=== PATIENT | male | born 1945 | race Caucasian/White ===

== ENCOUNTER → 2016-07-25 | Outpatient (REF) | payer MEDICARE ==
[2016-07-25 12:27] LABS: ALBUMIN 3.4 GM/DL (3.2-5.2); ALBUMIN/GLOBULIN RATIO 1.17 (1.00-1.93); ALKALINE PHOSPHATASE 139 U/L (45-117); ALT/SGPT 16 U/L (12-78); ANION GAP 5 MEQ/L (8-16); AST/SGOT 17 U/L (15-37); BILIRUBIN,TOTAL 0.6 MG/DL (0.2-1.0); BLOOD UREA NITROGEN 15 MG/DL (7-18); CALCIUM LEVEL 8.7 MG/DL (8.8-10.2); CARBON DIOXIDE LEVEL 30 MEQ/L (21-32); CHLORIDE LEVEL 104 MEQ/L (98-107); CHOLESTEROL LEVEL 85 MG/DL (<200); CREATININE FOR GFR 1.24 MG/DL (0.70-1.30); GLOMERULAR FILTRATION RATE > 60.0 (>42); GLUCOSE, FASTING 91 MG/DL (83-110); SODIUM LEVEL 139 MEQ/L (136-145); TOTAL PROTEIN 6.3 GM/DL (6.4-8.2); TRIGLYCERIDES LEVEL 63 MG/DL (<150)
[2016-07-25 12:54] LABS: MEAN CORPUSCULAR HEMOGLOBIN 31.6 pg (27.0-33.0); MEAN CORPUSCULAR HGB CONC 33.8 g/dl (32.0-36.5); MEAN CORPUSCULAR VOLUME 93.6 fl (80.0-96.0); RED CELL DISTRIBUTION WIDTH 12.5 % (11.5-14.5); WHITE BLOOD COUNT 8.8 K/mm3 (4.0-10.0)
== END ==
LOC: M SFHCPLAZ 09:11
PROVIDERS: ATTEND Nurse Practitioner Adult Health
DX: I69.30 Unspecified sequelae of cerebral infarction (principal); N18.3 Chronic kidney disease, stage 3 (moderate)

== ENCOUNTER → 2017-03-27 | Outpatient (CLI) | payer MEDICARE ==
--- NOTE | 2017-03-27 10:59 | REP ---
Clinical: Lung screening. History smoking. Comparison: None Technique: Axial low-dose noncontrast images from the thoracic inlet to the upper abdomen using lung screening technique. Findings: The lung garcia are well-aerated. A 7 mm nonsolid opacity in the right upper lobe and 2 mm nonsolid opacity in the left upper lobe are otherwise nonspecific. No consolidation or mass lesion is appreciated. No pleural effusion/reaction or pneumothorax. Tracheobronchial tree is patent. Mediastinum demonstrates mild atherosclerotic changes of the coronary arteries without cardiomegaly. Impression: Lung-RADS category II. Recommendations include annual low-dose CT evaluation. Signed by Everardo Cm MD 03/27/2017 10:50 A
== END ==
LOC: M RAD 09:11
PROVIDERS: ATTEND Nurse Practitioner Adult Health
DX: Z12.2 Encounter for screening for malignant neoplasm of respiratory organs (principal); F17.210 Nicotine dependence, cigarettes, uncomplicated

== ENCOUNTER → 2017-12-26 | Outpatient (REF) | payer MEDICARE ==
[2017-12-26 12:15] LABS: HEMOGLOBIN 13.4 g/dl (13.5-17.5); MEAN CORPUSCULAR HEMOGLOBIN 30.9 pg (27.0-33.0); MEAN CORPUSCULAR HGB CONC 33.5 g/dl (32.0-36.5); MEAN CORPUSCULAR VOLUME 92.2 fl (80.0-96.0); PLATELET COUNT, AUTOMATED 151 10^3/uL (150-450); RED BLOOD COUNT 4.34 10^6/uL (4.30-6.10); RED CELL DISTRIBUTION WIDTH 12.5 % (11.5-14.5); WHITE BLOOD COUNT 8.1 10^3/uL (4.0-10.0)
[2017-12-26 13:27] LABS: ALBUMIN 3.4 GM/DL (3.2-5.2); ALBUMIN/GLOBULIN RATIO 1.13 (1.00-1.93); ALKALINE PHOSPHATASE 138 U/L (45-117); ALT/SGPT 22 U/L (12-78); ANION GAP 9 MEQ/L (8-16); AST/SGOT 16 U/L (7-37); BILIRUBIN,TOTAL 0.4 MG/DL (0.2-1.0); BLOOD UREA NITROGEN 15 MG/DL (7-18); CALCIUM LEVEL 8.8 MG/DL (8.8-10.2); CARBON DIOXIDE LEVEL 25 MEQ/L (21-32); CHLORIDE LEVEL 103 MEQ/L (98-107); CHOLESTEROL LEVEL 92 MG/DL (<200); CHOLESTEROL RISK RATIO 3.407 (<5); CREATININE FOR GFR 1.42 MG/DL (0.70-1.30); GLOMERULAR FILTRATION RATE 52.2 (>42); GLUCOSE, FASTING 72 MG/DL (70-100); HDL CHOLESTEROL 27 MG/DL (>40); LDL CHOLESTEROL 43.8 MG/DL (<100); NON-HDL-C 65 MG/DL; POTASSIUM SERUM 4.7 MEQ/L (3.5-5.1); SODIUM LEVEL 137 MEQ/L (136-145); TOTAL PROTEIN 6.4 GM/DL (6.4-8.2); TRIGLYCERIDES LEVEL 106 MG/DL (<150)
== END ==
LOC: M SFHCPLAZ 09:09
DX: D64.9 Anemia, unspecified (principal); I69.30 Unspecified sequelae of cerebral infarction; N18.3 Chronic kidney disease, stage 3 (moderate)
CPT/HCPCS: 80053

== ENCOUNTER → 2018-03-19 | Outpatient (CLI) | payer MEDICARE | LOC: M RAD 06:51 | DX: K80.20 Calculus of gallbladder without cholecystitis without obstruction (principal); R91.8 Other nonspecific abnormal finding of lung field | CPT/HCPCS: 71250 ==

== ENCOUNTER 2018-07-24 07:40 | Day surgery (SDC) | payer MEDICARE ==
[~2018-07-24] VITALS: Ht 177.8 cm; Wt 79.4 kg
[~2018-07-24 07:40] MED LIST: ASPI-222 PO; ASPI81TA85 PO; ATEN50TA2 PO; ATOR80TA59 PO; CLOP75TA2 PO; LISI10TA4 PO; NS 1,000 ML IV ONE
[2018-07-24] MEDS ORDERED: PROPOFOL 200 MG/20 ML VIAL As Ordered ONE (07:48)
[2018-07-24] MEDS ORDERED: LIDOCAINE 2% INJ 100 MG/5 ML SDV (FOR ANES.) As Ordered ONE (07:48)
--- NOTE | 2018-07-24 10:40 | ROOR ---
Patient Name: Jose Wasserman Procedure Date: 07/24/2018 9:18 AM Date of : 1945 Age: 73 [facility] Gender: Male Note Status: Finalized Procedure: Colonoscopy Indications: Clinically significant diarrhea of unexplained origin Providers: Jesus Decker MD Referring MD: Zahra Bustamante NP Requesting Provider: Medicines: Monitored Anesthesia Care Complications: No immediate complications. Procedure: Pre-Anesthesia Assessment: - Prior to the procedure, a History and Physical was performed, and patient medications and allergies were reviewed. The patient is competent. The risks and benefits of the procedure and the sedation options and risks were discussed with the patient. All questions were answered and informed consent was obtained. Patient identification and proposed procedure were verified by the physician, the nurse and the anesthesiologist in the endoscopy suite. Mental Status Examination: alert and oriented. Airway Examination: normal oropharyngeal airway and neck mobility. Respiratory Examination: clear to auscultation. CV Examination: normal. Prophylactic Antibiotics: The patient does not require prophylactic antibiotics. Prior Anticoagulants: The patient has taken Plavix (clopidogrel), last dose was 4 days prior to procedure. ASA Grade Assessment: II - A patient with mild systemic disease. After reviewing the risks and benefits, the patient was deemed in satisfactory condition to undergo the procedure. The anesthesia plan was to use monitored anesthesia care (MAC). Immediately prior to administration of medications, the patient was re-assessed for adequacy to receive sedatives. The heart rate, respiratory rate, oxygen saturations, blood pressure, adequacy of pulmonary ventilation, and response to care were monitored throughout the procedure. The physical status of the patient was re-assessed after the procedure. The Colonoscope was introduced through the anus and advanced to the cecum, identified by appendiceal orifice and ileocecal valve. The colonoscopy was somewhat difficult due to poor bowel prep. Successful completion of the procedure was aided by lavage. The patient tolerated the procedure well. The quality of the bowel preparation was fair with multiple areas of solid stool, but able to be lavaged to clear the area off the stool Findings: The perianal and digital rectal examinations were normal. Scattered small-mouthed diverticula were found in the sigmoid colon and descending colon. There was no evidence of diverticular bleeding. Four semi-pedunculated polyps were found in the cecum. The polyps were 1 to 5 mm in size. These polyps were removed with a hot snare. Resection and retrieval were complete. Estimated blood loss was minimal. There is no endoscopic evidence of erythema, inflammation or colitis in the entire colon. Multiple biopsies were obtained with cold forceps for evaluation of microscopic colitis randomly from transverse colon to rectum. Impression: - Preparation of the colon was fair. - Mild diverticulosis in the sigmoid colon and in the descending colon. There was no evidence of diverticular bleeding. - Four 1 to 5 mm polyps in the cecum, removed with a hot snare. Resected and retrieved. - Multiple biopsies were obtained from transverse colon to rectum. Recommendation: - Discharge patient to home (ambulatory). - Resume Plavix (clopidogrel) tomorrow at prior dose. - Repeat colonoscopy in 5 years for surveillance. - Telephone my office for pathology results in 1 week. Jesus Decker MD Jesus Decker MD 07/24/2018 10:37:57 AM Electronically signed by Jesus Decker MD Number of Addenda: 0 Note Initiated On: 07/24/2018 9:18 AM Estimated Blood Loss: Estimated blood loss was minimal.
[2018-07-24 11:09] VITALS: BP 142/75
== END 2018-07-24 11:32 | disposition home or self-care (01) ==
LOC: M OPP 07:40
PROVIDERS: ATTEND Surgery
DX: D12.0 Benign neoplasm of cecum (principal); K57.30 Diverticulosis of large intestine without perforation or abscess without bleeding; R19.7 Diarrhea, unspecified; K80.80 Other cholelithiasis without obstruction; Z79.82 Long term (current) use of aspirin; Z79.899 Other long term (current) drug therapy; F17.210 Nicotine dependence, cigarettes, uncomplicated

== ENCOUNTER → 2019-01-06 | Outpatient (REF) | payer MEDICARE ==
[~2019-01-06] MED LIST changes: -ASPI-222 PO; +ASPI-527 PO; -NS 1,000 ML IV ONE
[2019-01-06 13:56] LABS: HEMATOCRIT 42.8 % (42.0-52.0); HEMOGLOBIN 14.1 g/dl (13.5-17.5); MEAN CORPUSCULAR HEMOGLOBIN 31.5 pg (27.0-33.0); MEAN CORPUSCULAR HGB CONC 32.9 g/dl (32.0-36.5); MEAN CORPUSCULAR VOLUME 95.5 fl (80.0-96.0); PLATELET COUNT, AUTOMATED 162 10^3/uL (150-450); RED BLOOD COUNT 4.48 10^6/uL (4.30-6.10); WHITE BLOOD COUNT 7.3 10^3/uL (4.0-10.0)
[2019-01-06 14:30] LABS: ALBUMIN 3.7 GM/DL (3.2-5.2); BILIRUBIN,TOTAL 0.5 MG/DL (0.2-1.0); CREATININE FOR GFR 1.4 MG/DL (0.70-1.30); GLOMERULAR FILTRATION RATE 52.9 (>42); POTASSIUM SERUM 4.6 MEQ/L (3.5-5.1); THYROID STIMULATING HORMONE 1.42 uIU/ML (0.358-3.740); TOTAL PROTEIN 6.5 GM/DL (6.4-8.2)
== END ==
LOC: M SFHCPLAZ 08:45
PROVIDERS: ATTEND Nurse Practitioner Adult Health
DX: N18.3 Chronic kidney disease, stage 3 (moderate) (principal); I69.30 Unspecified sequelae of cerebral infarction; Z12.5 Encounter for screening for malignant neoplasm of prostate; I12.9 Hypertensive chronic kidney disease with stage 1 through stage 4 chronic kidney disease, or unspecified chronic kidney disease
CPT/HCPCS: 80053; 80061; 84443; 85027; G0103; G0463

== ENCOUNTER → 2020-05-31 | Outpatient (REF) | payer OTHER ==
[~2020-05-31] MED LIST changes: -ASPI81TA85 PO; +ASPI81TA86 PO
[2020-05-31 11:15] LABS: HEMATOCRIT 44.4 % (42.0-52.0); HEMOGLOBIN 14.6 g/dl (13.5-17.5); MEAN CORPUSCULAR HEMOGLOBIN 30.9 pg (27.0-33.0); MEAN CORPUSCULAR HGB CONC 32.9 g/dl (32.0-36.5); MEAN CORPUSCULAR VOLUME 93.9 fl (80.0-96.0); PLATELET COUNT, AUTOMATED 170 10^3/uL (150-450); RED BLOOD COUNT 4.73 10^6/uL (4.30-6.10); WHITE BLOOD COUNT 10.3 10^3/uL (4.0-10.0)
[2020-05-31 11:52] LABS: ALBUMIN 3.9 GM/DL (3.2-5.2); BILIRUBIN,TOTAL 0.6 MG/DL (0.2-1.0); CHOLESTEROL RISK RATIO 3.433 (<5); CREATININE FOR GFR 1.52 MG/DL (0.70-1.30); GLOMERULAR FILTRATION RATE 47.8 (>42); THYROID STIMULATING HORMONE 1.38 uIU/ML (0.358-3.740); TOTAL PROTEIN 7.1 GM/DL (6.4-8.2)
== END ==
LOC: M SFHCPLAZ 08:53
PROVIDERS: ATTEND Nurse Practitioner Adult Health
DX: N18.30 Chronic kidney disease, stage 3 unspecified (principal); E16.2 Hypoglycemia, unspecified; I69.30 Unspecified sequelae of cerebral infarction; Z00.00 Encounter for general adult medical examination without abnormal findings

== ENCOUNTER → 2020-11-30 | Outpatient (CLI) | payer MEDICARE ==
[~2020-11-30] MED LIST changes: +AMOX875T2 PO; +ASPI81TA26 PO; +AUGM875T28 PO; +DOXY100T PO; +LISI10TA22 PO; -LISI10TA4 PO
[2020-11-30 13:32] LABS: CALCIUM LEVEL 8.6 MG/DL (8.8-10.2); CREATININE FOR GFR 1.3 MG/DL (0.70-1.30); GLOMERULAR FILTRATION RATE 57.3 (>42); POTASSIUM SERUM 4.9 MEQ/L (3.5-5.1)
== END ==
LOC: M LAB 10:03
PROVIDERS: ATTEND Nurse Practitioner Adult Health
DX: K57.90 Diverticulosis of intestine, part unspecified, without perforation or abscess without bleeding (principal)

== ENCOUNTER → 2020-12-03 | Outpatient (CLI) | payer MEDICARE ==
[~2020-12-03] MED LIST changes: +ISOVUE-370 76% 100ML VIAL As Ordered ONE
== END ==
LOC: M RAD 13:47
PROVIDERS: ATTEND Nurse Practitioner Adult Health
DX: R93.5 Abnormal findings on diagnostic imaging of other abdominal regions, including retroperitoneum (principal); R91.8 Other nonspecific abnormal finding of lung field
CPT/HCPCS: 74177; Q9967

== ENCOUNTER 2021-02-26 12:46 | Emergency (ER) | payer MEDICARE ==
[~2021-02-26] VITALS: Ht 175.3 cm; Wt 77.3 kg
[~2021-02-26 12:46] MED LIST changes: -AMOX875T2 PO; -ASPI81TA26 PO; -AUGM875T28 PO; -DOXY100T PO; -ISOVUE-370 76% 100ML VIAL As Ordered ONE
[2021-02-26 12:47] VITALS: BP 143/77
--- OUTSIDE RECORDS SUMMARY | 2021-02-26 12:52 | CCD ---
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 Act nigel confirmed 222431644 Problem History of left-sided carotid endarterectomy Z98.8 9 Active confirmed 638432860 Problem Hyperlipidemia E78.5 Active confirmed 56840 004 Problem Carotid artery disease I77.9 Active confirmed 625283270 Problem Diverticulosis K57.90 Active confirmed 31932 1000 Problem Tobacco abuse Z72.0 Active confirmed 064057 05 Problem Altered bowel habits R19.4 Active confirmed 93501588 Problem Skin lesion L98.9 Active confirmed 22004715 Problem Lung nodule R91.1 Active confirmed 02442196 2 Problem Chronic kidney disease, stage 3 (moderate) N18.3 Active confirmed 507254601 Problem Hypertensive chronic kidney disease with stage 1 through stage 4 chronic kidney disease, or unspecified chronic kidney disease I12.9 Active confirmed 10820226 Problem Hypoglycemia E16.2 Active confirmed 2287089 03 Problem Nicotine dependence, unspecified, uncomplicated F1 7.200 Active confirmed 618147436 Problem CAD (coronary artery disease) I25.10 Active confirm ed 29606520 Problem CKD (chronic kidney disease) stage 3, GFR 30-59 ml/min N18.3 Active confirmed 297684113 Problem Essential hypertension I10 Active confirmed 11864736 Problem Osteoarthritis M19.90 Active confirmed 87917 5006 Problem Memory loss R41.3 Active confirmed 35246220 Problem Continuous dependence on cigarette smoking F17.210 Active confirmed 219705117930616 Problem Calculus of gallbladder without cholecystitis wi thout obstruction K80.20 Active confirmed 230291142 Problem Hypertension 401.9 Active confirmed 9403536 3 Problem Worried well Z71.1 Active confirmed 1845849 5 ALLERGIES No Known Allergies ENCOUNTERS from 1945 to 2020-12-01 Encounter Location Date Provider Diagnosis [place] [address] [facility] [phone] [place] [address] Nov, Zahra Servage Essential hypertension I10 ; Diverticulosis K57.90 ; History of CVA with residual deficit I69.30 ; CKD (chronic kidney disease) stage 3, GFR 30- 59 ml/min N18.3 ; Hypertensive chronic kidney disease with stage 1 through stage 4 chronic kidney disease, or unspecified chronic kidney disease I12.9 ; Abnormal CT lung screening R91.8 ; Acquired right foot drop M21.371 ; Bradycardia R00.1 ; Worried well Z71.1 ; Hypoglycemia E16.2 ; Cellulitis of right foot L03.115 and Biliary calculus of other site without obstruction K80.80 IMMUNIZATIONS Vaccine Route Administration Date Status Influenza 18 yrs & older Flublok IM Intramuscular Feb 20, 2019 Administered Influenza (High Dose 65 & up) IM Intramuscular Jan 13, 2016 A dministered Influenza (High Dose 65 & up) IM Intramuscular Jan 19, 2015 A dministered Influenza (High Dose 65 & up) IM Intramuscular Mar 19, 2014 A dministered Pneumococcal Adult 0.5mL Pneumovax 23 IM Intramuscular Mar 19 014 Administered Pneumococcal 0.5mL Prevnar 13 IM Intramuscular May 27, 2015 A dministered SOCIAL HISTORY Sex Assigned At : Social History Observation Description Sex Assigned At Unknown Education: Question Answer Notes Level of Education: Finished 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 No Have you ever had an STD? No Drug and Alcohol Question Answer Notes Total Score: 0 Interpretation: No problems reported Alcohol Screening: Question Answer Notes Did you have a drink containing alcohol in the past year? Ye s Points 1 Interpretation Negative How often did you have six or more drinks on one occas ion in the past year? Never (0 points) How many drinks did you have on a typica l day when you were drinking in the past year? 1 or 2 (0 points) How often did you have a drink containing alcohol in t he past year? Monthly or less (1 point) REASON FOR REFERRAL No Information VITAL SIGNS Weight 175.9 lbs Nov, Weight-kg 79.79 kg Nov, Height 68 in Nov, BMI 26.74 kg/m2 Nov, Heart Rate 56 /min Nov, Respiratory Rate 18 /min Nov, Temperature 97 degrees Fahrenheit Nov, Oximetry 96 Nov, Blood pressure systolic 122 mm Hg Nov, Blood pressure diastolic 74 mm Hg Nov, MEDICATIONS Medication SIG (Take, Route, Frequency, Duration) Notes Start Da te End Date Status Plavix 75 mg take 1 tablet by mouth once a day Orally Once a day for 90 Active Aspir-81 81 MG 2 tablets Orally Daily Active Atenolol 50 mg take 1 tablet by mouth once a day Orally Once a day fo r 90 Active Lisinopril 10 mg take 1 tablet by mouth once a day Orally Once a da y for 90 Active Lipitor 80 mg take 1 tablet by mouth daily Orally Once a day for 90 Unknown Actigall 300 MG 1 capsule Orally Daily for 90 days Nov, Active Cephalexin 500 MG 1 capsule Orally Four times a day for 7 days Nov, Active PROCEDURES No Information RESULTS No Results REASON FOR VISIT 6M F/U MEDICAL (GENERAL) HISTORY Type Description Date Medical History Hypertension Medical History Hyperlipidemia, ASCVD 10-year risk was 2 5.1% in 02/2014 Medical History left finger laceratio-Adacal Immunizatio n 2006 Medical History H/O CVA 1997, 1998, 2011. Re sidual Rt sided weakness. Dysarthria. Medical History Caroitd Vascular Disease/s/p REDO Left C EA [facility] 10/12. Medical History Ultrasound of the Abdominal Aorta: [place] 06/11 Neg for aneurysm Medical History PSA wnl- 06/11 Medical History EKG 03/12 SB 49 bpm. Pt states [facility] 10/12 pre op Medical History RA Screen negative 2010 Medical History MMSE 04/02/15 = 23/30 refuses further inv estigations Medical History Diverticulosis per colonoscopy 03/11 Medical History Colonoscopy [address] Haris heart [place] reported normal-recheck 5 years 2016, was scheduled 2016 canceled appt. Medical History 03/27/2017, low dose long sc reening CT, 7 M&Ms nonsolid opacity in the right upper lobe and 2 mm nonsolid opacity in the left upper lobe recommended annual low-dose CT evaluation yearly due 03/27/18 Medical History 03/19/18 CT chest Stable chr onic age-related interstitial changes through the lung garcia. no opacity Medical History 07/24/[address] Saurabh hedrick, mild diverticulosis in the sigmoid and descending colon, no diverticular bleeding. 4 polyps snared. Five- year follow-up for surveillance due 2023 Surgical History left [place]otid [place]arectomy([place] 1997 Surgical History right ankle fx/ hardware 1989 Surgical History Colonoscopy-[facility]- poylp-tubular mari noma 2002 Surgical History Colonoscopy- Dr Goldie Baxter e-Nml per ltr from Dr Amezcua 2011. Recheck 5 years. (2016) NOVEMBER 2015-canceled colonoscopy refuses any more 2011 Surgical History Re-do Left Carotid Endarectomy [facility] Dr. Palmer 09/2014 Surgical History Colonoscopy , Dr. Decker, mild diverticulosis in the sigmoid colon, descending colon 4 polyps removed, five-year follow-up 2023 due 07/25/18 Hospitalization History CVA 1997, 1998 Goals Section No Information Health Concerns No Information MEDICAL EQUIPMENT No Information MENTAL STATUS No Information FUNCTIONAL STATUS No Information ASSESSMENTS Encounter Date Diagnosis Assessment Notes Treatment Notes Treatm ent Clinical Notes Nov, Essential hypertension (ICD-10 - I10) meets goal no changes needed., Per JNC 8 guidelines, goal BP < 140/90 (150/90 if age >60), is meeting goal on current regimen. Advised heart-healthy diet, sodium restriction, ststes he feels good, does not want any changes. Has stopped his water pill feels he does not need it Nov, Diverticulosis (ICD-10 - K57.90) Has a history of diverticulosis, was due for follow-up colonoscopy , this was scheduled in [place], patient called and canceled he states he does not want any further colonoscopies, 07/02/18 seen in March with Diarrhea issues,sent to sugical services, agrees to follow up with Dr. Decker to reschedule colonoscopy 12/04/18 no issues today had colonoscopy 07/24/2018, five-year follow-up suggested due 02/15no issues today 06/20 discussed that bout of diarrhea may be related to diverticular disease 12/18 once again worried about his diarrhea, has been to GI, will obtain a CT abdomen pelvis for further evaluation Nov, History of CVA with residual deficit (ICD-10 - I 69.30) Has a history of a CVA dating back to 1997, he remains on Plavix and Lipitor has dysarthric speech pattern otherwise he is doing well admits to weakness of right leg with foot drop Nov, CKD (chronic kidney disease) stage 3, GFR 30-59 ml/min (ICD-10 - N18.3) labs reviewed, gfr 48 stage 3 renal insuff has been stable for years Nov, Hypertensive chronic kidney disease with stage 1 through stage 4 chronic kidney disease, or unspecified chronic kidney disease (ICD-10 - I12.9) Nov, Abnormal CT lung screening (ICD-10 - R91.8) abnormal chest ct 2016 follow up to be scheduled. pt in agreement scan indicated 7 mm nonsolid opacity in the right upper lobe in 2 mm nonsolid opacity in the left upper lobe are otherwise nonspecific no consolidation or mass lesion is appreciated. Recommend dated annual low-dose CT evaluation discussed will schedule at next appt in November. 12/04/18 does not want a follow up today. 01/06/19 does not want follow up today last one was negative. 02/20/19 no follow up today 05/[address] scan in 6 months does not want it now due to COVID 11/2020 agrees to screening lung CT today, will be scheduled Nov, Acquired right foot drop (ICD-10 - M21.371) from past stoke tolerates does not not marvel any referral for pt/ot Nov, Bradycardia (ICD-10 - R00.1) Bradycardia noted during auscultation, EKG indicated sinus bradycardia first- degree AV block. Early repolarization stable versus prior EKG 03/18/2013. Patient is on a beta david. We will continue to monitor Nov, Worried well (ICD-10 - Z71.1) States that he is worried he has cancer someplace and wants to be on top of it Nov, Hypoglycemia (ICD-10 - E16.2) No issues at the current time Nov, Cellulitis of right foot (ICD-10 - L03.115) Will treat with Keflex four times a day x7 days Nov, Biliary calculus of other si te without obstruction (ICD-10 - K80.80) Has a history of cholelithiasis, question if this is contributing to his diarrhea, will order Actigall daily and monitor progress Nov, Other Further care up depends upon outcomes of these initial measures PLAN OF TREATMENT Medication Medication Name Sig Start Date Stop Date Cephalexin 500 MG 1 capsule Orally Four times a day for 7 days 0 Nov, Actigall 300 MG 1 capsule Orally Daily for 90 days Nov, Treatment Notes Assessment Notes Clinical Notes Essential hypertension meets goal no aniket nges needed., Per JNC 8 guidelines, goal BP < 140/90 (150/90 if age >60), is meeting goal on current regimen. Advised heart-healthy diet, sodium restriction, ststes he feels good, does not want any changes. Has stopped his water pill feels he does not need it Diverticulosis Has a history of div erticulosis, was due for follow-up colonoscopy , this was scheduled in [place], patient called and canceled he states he does not want any further colonoscopies,07/02/18 seen in March with Diarrhea issues,sent to sugical services, agrees to follow up with Dr. Decker to reschedule colonoscopy12/04/18 no issues today had colonoscopy 07/24/2018, five-year follow-up suggesteddue no issues today06/20 discussed that bout of diarrhea may be related to diverticular disease12/18 once again worried about his diarrhea, has been to GI, will obtain a CT abdomen pelvis for further evaluation History of CVA with residual deficit Has a history of a CVA dating back to 1997, he remains on Plavix and Lipitor has dysarthric speech pattern otherwise he is doing welladmits to weakness of right leg with foot drop CKD (chronic kidney disease) stage 3, GFR 30-59 ml/min labs reviewed, gfr 48 stage 3 renal insuff has been stable for years Abnormal CT lung screening abnormal ches t ct 2016 follow up to be scheduled. pt in agreement scan indicated 7 mm nonsolid opacity in the right upper lobe in 2 mm nonsolid opacity in the left upper lobe are otherwise nonspe cific no consolidation or mass lesion is appreciated. Recommend dated annual low-dose CT evaluation discussed will schedule at next appt in November.12/04/18 does not want a follow up today.01/06/19 does not want follow up today last one was negative.02/20/19 no follow up today05/[address] scan in 6 months does not want it now due to COVID11/2020 agrees to screening lung CT today, will be scheduled Acquired right foot drop from past stoke tolerates does not not marvel any referral for pt/ot Bradycardia Bradycardia noted du ring auscultation, EKG indicated sinus bradycardia first-degree AV block. Early repolarization stable versus prior EKG 03/18/2013. Patient is on a beta david. We will continue to monitor Worried well States that he is wo rried he has cancer someplace and wants to be on top of it Hypoglycemia No issues at the cur rent time Cellulitis of right foot Will treat with Keflex four times a day x7 days Biliary calculus of other site without obstruction Has a history of cholelithiasis, question if this is contributing to his diarrhea, will order Actigall daily and monitor progress Treatment Notes Test Name Order Date CT ABD/PEL w/IV Contrast Only 2020-11-29 Low Dose Lung Screening CT Chest 2020-11-29 Basic Metabolic Profile (BMP) 2020-11-29 Next Appt Details 6 months medicare wellness Reason: Provider Name:Zahra Bustamante, 08:00:00 AM, [address] [facility], , [place], [address], Insurance Providers Payer Name Payer Address Payer Phone Insured Name Patient Relati onship to Insured Coverage Start Date Coverage End Date [facility] [employer] [facility] [address] [facility] [phone] JHOANA BAUTISTA self
--- OUTSIDE RECORDS SUMMARY | 2021-02-26 12:52 | CCD ---
Author Author [facility] Organization [employer] [facility] Address Unknown Phone Unavailable Care Team Providers Care Transportation Services Representative Name Role Phone Robby Zahra Unavailable PROBLEMS ALLERGIES No Known Allergies ENCOUNTERS from 1945 to 2020-11-30 IMMUNIZATIONS SOCIAL HISTORY No smoking Hx information available REASON FOR REFERRAL No Information VITAL SIGNS MEDICATIONS PROCEDURES No Information RESULTS No Results REASON FOR VISIT MEDICAL (GENERAL) HISTORY Goals Section Health Concerns MEDICAL EQUIPMENT No Information MENTAL STATUS FUNCTIONAL STATUS ASSESSMENTS PLAN OF TREATMENT Insurance Providers
--- OUTSIDE RECORDS SUMMARY | 2021-02-26 12:52 | CCD ---
Author Author [facility] Organization [facility] Address Unknown Phone Unavailable Support Name Relationship Address Phone VIDALBISMARK RESTREPOCATALINA Next Of Kin [address] [place] [address] BRET POTTS Next Of Kin Unknown BRET FRANCISCO Next Of Kin [address] [place] [address] BRET KING Next Of Kin [address] [place] [address] RAFAEL, BRET Next Of Kin [address] [place] [address] Unavailable RE Next Of Kin Unknown RAFAEL, ELVIRA Next Of Kin [address] [place] [address] STERGES, GUS Next Of Kin Unknown Unavailable BRET KING Next Of Kin Unknown Unavailable Brook Rothshari ECON [address] [place] [address], [place] [address] Unavailable RAFAEL, ELVIRA ECON [address] [place] [address] Unavailable Re-disclosure Warning The records that you are about to access may contain information from federally-assisted alcohol or drug abuse programs. If such information is present, then the following federally mandated warning applies: This information has been disclosed to you from records protected by federal confidentiality rules (42 CFR part 2). The federal rules prohibit you from making any further disclosure of this information unless further disclosure is expressly permitted by the written consent of the person to whom it pertains or as otherwise permitted by 42 CFR part 2. A general authorization for the release of medical or other information is NOT sufficient for this purpose. The Federal rules restrict any use of the information to criminally investigate or prosecute any alcohol or drug abuse patient.The records that you are about to access may contain highly sensitive health information, the redisclosure of which is protected by Article 27-F of the [facility] Public Health law. If you continue you may have access to information: Regarding HIV / AIDS; Provided by facilities licensed or operated by the [facility] Office of Mental Health; or Provided by the [facility] Office for People With Developmental Disabilities. If such information is present, then the following [facility] mandated warning applies: This information has been disclosed to you from confidential records which are protected by state law. State law prohibits you from making any further disclosure of this information without the specific written consent of the person to whom it pertains, or as otherwise permitted by law. Any unauthorized further disclosure in violation of state law may result in a fine or penitentiary sentence or both. A general authorization for the release of medical or other information is NOT sufficient authorization for further disc losure. Family History Family Member Name Family Member Gender Family Member Status Date o f Status Description Data Source(s) Unknown Male Problem MEDENT ([facility], ) Encounters Encounter Providers Location Date Indications Data Source(s ) Unknown [address] [facility] [id number] 11/30/2020 12:00:00 AM EDT eCW1 ([facility]) Office Visit, Est Pt., Level 4 [address] [place] [address] 11/29/2020 12:00:00 AM EDT eCW1 ([facility]) Outpatient [address] [facility] [address] 05/31/2020 12:00:00 AM EST eCW1 ([facility]) Unknown [address] [facility] [id number] 05/10/2020 12:00:00 AM EST eCW1 ([facility]) Unknown [address] [facility] [address] 04/01/2020 12:00:00 AM EST eCW1 ([facility]) Immunizations Vaccine Date Status Description Data Source(s) COVID-19 VACC,MRNA(MODERNA)/PF 09/06/2020 12:00:00 AM EDT completed [facility] COVID-19 VACCINE Moderna 09/06/2020 12:00:00 AM EDT completed [facility] Vaccine Series Complete: YESThis Data wa s Submitted to [facility] Via [employer]. COVID-19 VACCINE Moderna 08/06/2020 12:00:00 AM EDT completed [facility] Vaccine Series Complete: NOThis Data was Submitted to [facility] Via [employer]. COVID-19 VACCINE, MRNA-1273, LNP-S (MODERNA)/PF 08/06/2020 1 2:00:00 AM EDT completed [facility] INFLUENZA VACCINE QUADRIVALENT (65 YR UP)/MF59 C.1/PF 02/03/2020 12:00:00 AM EDT completed [facility] Medications Medication Brand Name Start Date Product Form Dose Route Admi nistrative Instructions Pharmacy Instructions Status Indications Reaction Description Data Source(s) Cephalexin 500 MG Oral Capsule CEPHALEXIN 11/30/2020 12:00:00 AM EDT capsule 28 TAKE ONE CAPSULE BY MOUTH FOUR TIMES A DAY FOR 7 DAYS TAKE ONE CAPSULE BY MOUTH FOUR TIMES A DAY FOR 7 DAYS SOLD: 11/30/2020 [facility] Cephalexin 500 MG Oral Capsule Cephalexin 500 MG 11/29/2020 12:00:0 0 AM EDT 1.0 {capsule} active Cephalexin 500 MG eCW1 ([facility]) Cephalexin 500 MG Oral Capsule Cephalexin 500 MG 11/29/2020 12:00:0 0 AM EDT 1.0 {capsule} active eCW1 ([facility]) Actigall 300 MG UNK 11/29/2020 12:00:00 AM EDT 1.0 {capsule} active Actigall 300 MG eCW1 ([facility]) Actigall 300 MG UNK 11/29/2020 12:00:00 AM EDT 1.0 {capsule} active eCW1 ([facility]) Insurance Providers Payer name Policy type / Coverage type Policy ID Covered democrat ID Covered democrat's relationship to muller Policy Muller Plan Information MEDICARE COMPLETE [id number] SP [id number] UHC UNITED MEDICARE COMPLETE G [id number] Self [id number] UHC MEDICARE [id number] Sarita [id number] MEDICARE COMPLETE [id number] SP [id number] MEDICARE COMPLETE [id number] SP [id number] MEDICARE COMPLETE [id number] Unitedhealthcare Medicare Commercial [id number] Self [id number] ANSI-Medicare Part B [id number] Medicaid [place] Medicaid [id number] Self [id number] [facility] Communty Plan Medicaid [id number] Self [id number] MEDICAID [facility] [id number] 18 [id number] [facility] COMMUNTY PLAN [id number] 18 [id number] ANSI-Medicare Part B [id number] ANSI-Medicare Part B [id number] ANSI-Medicare Part B [id number] ANSI-Medicare Part B [id number] MEDICARE COMPLETE-[facility] O [id number] S [id number] UN MEDICARE-O/P [id number] 18 [id number] UN MEDICARE-CLINIC [id number] 18 [id number] [facility] O [id number] S [id number] Managed Care - [facility] O [id number] S [id number] MEDICARE COMPLETE [id number] SP [id number] [facility] PLAN [facility] [id number] SP [id number] [facility] Secure [employer] P [id number] S [id number] Medicaid S UNAVAILABLE S UNAVAILA BLE MEDICARE COMPLETE [id number] SP [id number] ANSI-Medicare Part B [id number] Problems, Conditions, and Diagnoses Code Display Name Description Problem Type Effective Dates Data Source(s) N18.3 Chronic kidney disease stage 3 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 kidney disease) stage 3, GFR 30-59 ml/min Problem 11/29/2020 12:00:00 AM EDT eCW1 ([facility]) E16.2 Hypoglycemia Hypoglycemia Problem 05/31/2020 12:00:00 A M EST eCW1 ([facility]) Surgeries/Procedures No Information Results ID Date Data Source INSULIN LEVEL 05/31/2020 12:00:00 AM EST eCW1 ([facility]) Name Value Range Interpretation Code Description Data Tanna rce(s) Supporting Document(s) 8.5 2.6-24.9 INSULIN LEVEL eCW1 ([facility]) ID Date Data Source TSH 05/31/2020 12:00:00 AM EST eCW1 ([facility]) Name Value Range Interpretation Code Description Data Tanna rce(s) Supporting Document(s) 1.380 0.358-3.740 THYROID STIMULATING HORM ONE eCW1 ([facility]) ID Date Data Source LIPID PANEL (CARDIAC RISK) 05/31/2020 12:00:00 AM EST eCW1 ( [facility]) Name Value Range Interpretation Code Description Data Tanna rce(s) Supporting Document(s) Triglyceride [Mass/volume] in Serum or Plasma by calculation 97 <150 TRIGLYCERIDES LEVEL eCW1 ([facility]) Cholesterol in HDL [Moles/volume] in Serum or Plasma 30 >40 HDL CHOLESTEROL eCW1 ([facility]) Cholesterol [Moles/volume] in Serum or Plasma 103 <200 CHOLESTEROL LEVEL eCW1 ([facility]) Cholesterol in LDL [Mass/volume] in Serum or Plasma by calculation 54 <100 LDL CHOLESTEROL eCW1 ([facility]) 73 NON-HDL-C eCW1 ([facility]) 3.433 <5 CHOLESTEROL RISK RATIO eCW1 ([facility]) ID Date Data Source Comprehensive Metabolic Profile (CMP) 05/31/2020 12:00:00 AM EST eCW1 ([facility]) Name Value Range Interpretation Code Description Data Tanna rce(s) Supporting Document(s) 91 70-100 GLUCOSE, FASTING eCW1 ([facility]) 18 7-18 BLOOD UREA NITROGEN eCW1 ([facility]) 1.52 0.70-1.30 CREATININE FOR GFR eCW1 ([facility]) 47.8 >42 GLOMERULAR FILTRATION RATE eCW 1 ([facility]) 5.0 3.5-5.1 POTASSIUM SERUM eCW1 ([facility]) 138 136-145 SODIUM LEVEL eCW1 ([facility]) 104 98-107 CHLORIDE LEVEL eCW1 ([facility]) 30 21-32 CARBON DIOXIDE LEVEL eCW1 ([facility]) 9.0 8.8-10.2 CALCIUM LEVEL eCW1 ([facility]) 15 7-37 AST/SGOT eCW1 ([facility]) 25 12-78 ALT/SGPT eCW1 ([facility]) 145 45-117 ALKALINE PHOSPHATASE eCW1 ([facility]) 0.6 0.2-1.0 BILIRUBIN,TOTAL eCW1 ([facility]) 7.1 6.4-8.2 TOTAL PROTEIN eCW1 ([facility]) 3.9 3.2-5.2 ALBUMIN eCW1 ([facility]) 1.2 ALBUMIN/GLOBULIN RATIO eCW1 ([facility]) ID Date Data Source CBC - Complete Blood Count 05/31/2020 12:00:00 AM EST eCW1 ( [facility]) Name Value Range Interpretation Code Description Data Tanna rce(s) Supporting Document(s) 10.3 4.0-10.0 WHITE BLOOD COUNT eCW1 ([facility]) 14.6 13.5-17.5 HEMOGLOBIN eCW1 ([facility]) 4.73 4.30-6.10 RED BLOOD COUNT eCW1 ([facility]) 44.4 42.0-52.0 HEMATOCRIT eCW1 ([facility]) 93.9 80.0-96.0 MEAN CORPUSCULAR VOLUME e CW1 ([facility]) 30.9 27.0-33.0 MEAN CORPUSCULAR HEMOGLOB IN eCW1 ([facility]) 32.9 32.0-36.5 MEAN CORPUSCULAR HGB CONC eCW1 ([facility]) 12.5 11.5-14.5 RED CELL DISTRIBUTION WID TH eCW1 ([facility]) 170 150-450 PLATELET COUNT, AUTOMATED eCW1 ([facility]) Procedure Social History No Information Vital Signs ID Date Data Source UNK Name Value Range Interpretation Code Description Data Source(s) Body weight 175.9 [lb_av] 175.9 [lb_av] eCW1 ([facility]) Body weight 79.79 kg 79.79 kg W1 ([facility]) Body height 68 [in_i] 68 [in_i] W1 ([facility]) Body mass index (BMI) [Ratio] 26.74 kg/m2 26.74 kg/m2 W1 ([facility]) Heart rate 56 /min 56 /min eCW1 ([facility]) Respiratory rate 18 /min 18 /min W1 ([facility]) Body temperature 97 [degF] 97 [degF] eCW1 ([facility]) Systolic blood pressure 122 mm[Hg] 122 mm[Hg] e CW1 ([facility]) Diastolic blood pressure 74 mm[Hg] 74 mm[Hg] eCW1 ([facility]) Body weight 178.6 [lb_av] 178.6 [lb_av] eCW1 ([facility]) Body height 68 [in_i] 68 [in_i] eCW1 ([facility]) Body mass index (BMI) [Ratio] 27.15 kg/m2 27.15 kg/m2 eCW1 ([facility]) Heart rate 54 /min 54 /min eCW1 ([facility]) Respiratory rate 18 /min 18 /min eCW1 ([facility]) Body temperature 97.7 [degF] 97.7 [degF] eCW1 ( [facility]) Systolic blood pressure 130 mm[Hg] 130 mm[Hg] e CW1 ([facility]) Diastolic blood pressure 80 mm[Hg] 80 mm[Hg] eCW1 ([facility]) Patient Treatment Plan of Care Planned Activity Planned Date Details Description Data Source (s) Cephalexin 500 MG Oral Capsule 11/29/2020 12:00:00 AM EDT eCW1 ([facility]) Actigall 300 MG 11/29/2020 12:00:00 AM EDT eCW1 ([facility]) Cephalexin 500 MG Oral Capsule 11/29/2020 12:00:00 AM EDT eCW1 ([facility]) Actigall 300 MG 11/29/2020 12:00:00 AM EDT eCW1 ([facility])
[2021-02-26] MEDS ORDERED: BOOSTRIX/ADACEL VACCINE (DIPHTH/PERTUSS/ACELL/TETANUS) 0.5ML SYR IM ONE (13:00)
[2021-02-26] MEDS ORDERED: AUGM875T28 PO (13:04)
[2021-02-26] MEDS ORDERED: LIDOCAINE 2% MDV 20ML VIAL SC ONE (13:05)
--- OUTSIDE RECORDS SUMMARY | 2021-02-26 13:34 | CCD ---
Author Author [facility] Organization [facility] Address Unknown Phone Unavailable Support Name Relationship Address Phone VIDALBISMARK RESTREPOCATALINA Next Of Kin [address] [place] [address] BRET POTTS Next Of Kin Unknown BRET FRANCISCO Next Of Kin [address] [place] [address] BRET KING Next Of Kin [address] [place] [address] RAFAEL, BRET Next Of Kin [address] [place] [address] Unavailable RE Next Of Kin Unknown RAFAEL, ELVIRA Next Of Kin [address] [place] [address] STERGES, GUS Next Of Kin Unknown Unavailable BRET KING Next Of Kin Unknown Unavailable Brook Rothshari ECON [address] [place] [address], [place] [address] Unavailable RAFAEL, ELVIRA ECON [address] [place] [address] Unavailable Re-disclosure Warning The records that you [...] is protected by Article 27-F of the [facility] Public Health law. If you continue you may have access to information: Regarding HIV / AIDS; Provided by facilities licensed or operated by the [facility] Office of Mental Health; or Provided by the [facility] Office for People With Developmental Disabilities. If such information is present, then the following [facility] mandated warning applies: This information has been [...] law may result in a fine or group home sentence or both. A general authorization for the release of medical or other information is NOT sufficient authorization for further disc losure. Family History Family Member Name Family Member Gender Family Member Status Date o f Status Description Data Source(s) Unknown Male Problem MEDENT ([facility], ) Encounters Encounter Providers Location Date Indications Data Source(s ) Unknown [address] [facility] [id number] 11/30/2020 12:00:00 AM EDT eCW1 ([facility]) Office Visit, Est Pt., Level 4 [address] [place] [address] 11/29/2020 12:00:00 AM EDT eCW1 ([facility]) Outpatient [address] [facility] [address] 05/31/2020 12:00:00 AM EST eCW1 ([facility]) Unknown [address] [facility] [address] 05/10/2020 12:00:00 AM EST eCW1 ([facility]) Unknown [address] [facility] [address] 04/01/2020 12:00:00 AM EST eCW1 ([facility]) Immunizations Vaccine Date Status Description Data Source(s) COVID-19 VACC,MRNA(MODERNA)/PF 09/06/2020 12:00:00 AM EDT completed [facility] COVID-19 VACCINE Moderna 09/06/2020 12:00:00 AM EDT completed [facility] Vaccine Series Complete: YESThis Data wa s Submitted to [facility] Via [employer]. COVID-19 VACCINE Moderna 08/06/2020 12:00:00 AM EDT completed [facility] Vaccine Series Complete: NOThis Data was Submitted to [facility] Via [employer]. COVID-19 VACCINE, MRNA-1273, LNP-S (MODERNA)/PF 08/06/2020 1 [...] 1.0 {capsule} active Cephalexin 500 MG eCW1 ([facility]) Cephalexin 500 MG Oral Capsule Cephalexin 500 MG 11/29/2020 12:00:0 0 AM EDT 1.0 {capsule} active eCW1 ([facility]) Actigall 300 MG UNK 11/29/2020 12:00:00 AM EDT 1.0 {capsule} active Actigall 300 MG eCW1 ([facility]) Actigall 300 MG UNK 11/29/2020 12:00:00 AM EDT 1.0 {capsule} active eCW1 ([facility]) Insurance Providers Payer name Policy type / Coverage type Policy ID Covered republican ID Covered republican's relationship to muller Policy Muller Plan Information MEDICARE COMPLETE [id number] SP [id number] UHC UNITED MEDICARE COMPLETE G [id number] Self [id number] UHC MEDICARE [id number] Sarita [id number] MEDICARE COMPLETE [id number] SP [id number] MEDICARE COMPLETE [id number] SP [id number] MEDICARE COMPLETE [id number] Unitedhealthcare Medicare Commercial [id number] Self [id number] ANSI-Medicare Part B [id number] Medicaid [place] Medicaid [id number] Self [id number] [facility] Communty Plan Medicaid [id number] Self [id number] MEDICAID [facility] [id number] 18 [id number] [facility] COMMUNTY PLAN [id number] 18 [id number] ANSI-Medicare Part B [id number] ANSI-Medicare Part B [id number] ANSI-Medicare Part B [id number] ANSI-Medicare Part B [id number] MEDICARE COMPLETE-[facility] O [id number] S [id number] UN MEDICARE-O/P [id number] 18 [id number] UN MEDICARE-CLINIC [id number] 18 [id number] [facility] O [id number] S [id number] Managed Care - [facility] O [id number] S [id number] MEDICARE COMPLETE [id number] SP [id number] [facility] PLAN [facility] [id number] SP [id number] [facility] Secure [employer] P [id number] S [id number] Medicaid S UNAVAILABLE S UNAVAILA BLE MEDICARE COMPLETE [id number] SP [id number] ANSI-Medicare Part B [id number] Problems, Conditions, and Diagnoses Code Display Name Description Problem Type Effective Dates Data Source(s) N18.3 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, GFR 30-59 ml/min Problem 11/29/2020 12:00:00 AM EDT eCW1 ([facility]) E16.2 Hypoglycemia Hypoglycemia Problem 05/31/2020 12:00:00 A M EST eCW1 ([facility]) Surgeries/Procedures No Information Results ID Date Data Source INSULIN LEVEL 05/31/2020 12:00:00 AM EST eCW1 ([facility]) Name Value Range Interpretation Code Description Data Tanna rce(s) Supporting Document(s) 8.5 2.6-24.9 INSULIN LEVEL eCW1 ([facility]) ID Date Data Source TSH 05/31/2020 12:00:00 AM EST eCW1 ([facility]) Name Value Range Interpretation Code Description Data Tanna rce(s) Supporting Document(s) 1.380 0.358-3.740 THYROID STIMULATING HORM ONE eCW1 ([facility]) ID Date Data Source LIPID PANEL (CARDIAC RISK) 05/31/2020 12:00:00 AM EST eCW1 ( [facility]) Name Value Range Interpretation Code Description Data Tanna rce(s) Supporting Document(s) Triglyceride [Mass/volume] in Serum or Plasma by calculation 97 <150 TRIGLYCERIDES LEVEL eCW1 ([facility]) Cholesterol in HDL [Moles/volume] in Serum or Plasma 30 >40 HDL CHOLESTEROL eCW1 ([facility]) Cholesterol [Moles/volume] in Serum or Plasma 103 <200 CHOLESTEROL LEVEL eCW1 ([facility]) Cholesterol in LDL [Mass/volume] in Serum or Plasma by calculation 54 <100 LDL CHOLESTEROL eCW1 ([facility]) 73 NON-HDL-C eCW1 ([facility]) 3.433 <5 CHOLESTEROL RISK RATIO eCW1 ([facility]) ID Date Data Source Comprehensive Metabolic Profile (CMP) 05/31/2020 12:00:00 AM EST eCW1 ([facility]) Name Value Range Interpretation Code Description Data Tanna rce(s) Supporting Document(s) 91 70-100 GLUCOSE, FASTING eCW1 ([facility]) 18 7-18 BLOOD UREA NITROGEN eCW1 ([facility]) 1.52 0.70-1.30 CREATININE FOR GFR eCW1 ([facility]) 47.8 >42 GLOMERULAR FILTRATION RATE eCW 1 ([facility]) 5.0 3.5-5.1 POTASSIUM SERUM eCW1 ([facility]) 138 136-145 SODIUM LEVEL eCW1 ([facility]) 104 98-107 CHLORIDE LEVEL eCW1 ([facility]) 30 21-32 CARBON DIOXIDE LEVEL eCW1 ([facility]) 9.0 8.8-10.2 CALCIUM LEVEL eCW1 ([facility]) 15 7-37 AST/SGOT eCW1 ([facility]) 25 12-78 ALT/SGPT eCW1 ([facility]) 145 45-117 ALKALINE PHOSPHATASE eCW1 ([facility]) 0.6 0.2-1.0 BILIRUBIN,TOTAL eCW1 ([facility]) 7.1 6.4-8.2 TOTAL PROTEIN eCW1 ([facility]) 3.9 3.2-5.2 ALBUMIN eCW1 ([facility]) 1.2 ALBUMIN/GLOBULIN RATIO eCW1 ([facility]) ID Date Data Source CBC - Complete Blood Count 05/31/2020 12:00:00 AM EST eCW1 ( [facility]) Name Value Range Interpretation Code Description Data Tanna rce(s) Supporting Document(s) 10.3 4.0-10.0 WHITE BLOOD COUNT eCW1 ([facility]) 14.6 13.5-17.5 HEMOGLOBIN eCW1 ([facility]) 4.73 4.30-6.10 RED BLOOD COUNT eCW1 ([facility]) 44.4 42.0-52.0 HEMATOCRIT eCW1 ([facility]) 93.9 80.0-96.0 MEAN CORPUSCULAR VOLUME e CW1 ([facility]) 30.9 27.0-33.0 MEAN CORPUSCULAR HEMOGLOB IN eCW1 ([facility]) 32.9 32.0-36.5 MEAN CORPUSCULAR HGB CONC eCW1 ([facility]) 12.5 11.5-14.5 RED CELL DISTRIBUTION WID TH eCW1 ([facility]) 170 150-450 PLATELET COUNT, AUTOMATED eCW1 ([facility]) Procedure Social History No Information Vital Signs ID Date Data Source UNK Name Value Range Interpretation Code Description Data Source(s) Body weight 175.9 [lb_av] 175.9 [lb_av] eCW1 ([facility]) Body weight 79.79 kg 79.79 kg W1 ([facility]) Body height 68 [in_i] 68 [in_i] W1 ([facility]) Body mass index (BMI) [Ratio] 26.74 kg/m2 26.74 kg/m2 W1 ([facility]) Heart rate 56 /min 56 /min eCW1 ([facility]) Respiratory rate 18 /min 18 /min W1 ([facility]) Body temperature 97 [degF] 97 [degF] eCW1 ([facility]) Systolic blood pressure 122 mm[Hg] 122 mm[Hg] e CW1 ([facility]) Diastolic blood pressure 74 mm[Hg] 74 mm[Hg] eCW1 ([facility]) Body weight 178.6 [lb_av] 178.6 [lb_av] eCW1 ([facility]) Body height 68 [in_i] 68 [in_i] eCW1 ([facility]) Body mass index (BMI) [Ratio] 27.15 kg/m2 27.15 kg/m2 eCW1 ([facility]) Heart rate 54 /min 54 /min eCW1 ([facility]) Respiratory rate 18 /min 18 /min eCW1 ([facility]) Body temperature 97.7 [degF] 97.7 [degF] eCW1 ( [facility]) Systolic blood pressure 130 mm[Hg] 130 mm[Hg] e CW1 ([facility]) Diastolic blood pressure 80 mm[Hg] 80 mm[Hg] eCW1 ([facility]) Patient Treatment Plan of Care Planned Activity Planned Date Details Description Data Source (s) Cephalexin 500 MG Oral Capsule 11/29/2020 12:00:00 AM EDT eCW1 ([facility]) Actigall 300 MG 11/29/2020 12:00:00 AM EDT eCW1 ([facility]) Cephalexin 500 MG Oral Capsule 11/29/2020 12:00:00 AM EDT eCW1 ([facility]) Actigall 300 MG 11/29/2020 12:00:00 AM EDT eCW1 ([facility])
== END 2021-02-26 13:37 | disposition home or self-care (01) ==
LOC: M ED 12:46
DX: S61.452A Open bite of left hand, initial encounter (principal); W55.01XA Bitten by cat, initial encounter; Y92.009 Unspecified place in unspecified non-institutional (private) residence as the place of occurrence of the external cause; Y93.9 Activity, unspecified; Y99.9 Unspecified external cause status

== ENCOUNTER 2021-03-01 10:00 | Inpatient (IN) | payer MEDICARE ==
[~2021-03-01] VITALS: Ht 175.3 cm; Wt 78.5 kg
[~2021-03-01 10:00] MED LIST changes: +AUGM875T28 PO
--- OUTSIDE RECORDS SUMMARY | 2021-03-01 10:07 | CCD ---
Author Author [facility] Organization [facility] Address Unknown Phone Unavailable Support Name Relationship Address Phone MICHAEL ROTH Next Of Kin [address] [place] [address] BRET POTTS Next Of Kin Unknown STBRET BANSAL Next Of Kin [address] [place] [address] CHRISTINEBRET JIANG Next Of Kin [address] [place] [address] RAFAEL, BRET Next Of Kin [address] [place] [address] Unavailable RE Next Of Kin Unknown RAFAEL, ELVIRA Next Of Kin [address] [place] [address] STERGES, GUS Next Of Kin Unknown Unavailable CHRISTINE, BRET Next Of Kin Unknown Unavailable BRET FRANCISCO ECON [address] [place] [address] Unavailable Michael Roth ECON [address] [place] [address], [place] [address] Unavailable RAFAEL, ELVIRA ECON [address] [address], [place] [address] Unavailable Re-disclosure Warning The records that you [...] is protected by Article 27-F of the [facility] Public Health law. If you continue you may have access to information: Regarding HIV / AIDS; Provided by facilities licensed or operated by the [facility] Office of Mental Health; or Provided by the [facility] Office for People With Developmental Disabilities. If such information is present, then the following [facility] mandated warning applies: This information has [...] law may result in a fine or senior care sentence or both. A general authorization for the release of medical or other information is NOT sufficient authorization for further disc losure. Family History Family Member Name Family Member Gender Family Member Status Date o f Status Description Data Source(s) Unknown Male Problem MEDENT ([facility], ) Encounters Encounter Providers Location Date Indications Data Source(s ) Unknown [address] [facility] [id number] 11/30/2020 12:00:00 AM EDT eCW1 ([facility]) Office Visit, Est Pt., Level 4 [address] [place] [address] 11/29/2020 12:00:00 AM EDT eCW1 ([facility]) Outpatient [address] [facility] [id number] 05/31/2020 12:00:00 AM EST eCW1 ([facility]) Unknown [address] [facility] [id number] 05/10/2020 12:00:00 AM EST eCW1 ([facility]) Unknown [address] [facility] [id number] 04/01/2020 12:00:00 AM EST eCW1 ([facility]) Immunizations Vaccine Date Status Description Data Source(s) COVID-19 VACC,MRNA(MODERNA)/PF 09/06/2020 12:00:00 AM EDT completed [facility] COVID-19 VACCINE Moderna 09/06/2020 12:00:00 AM EDT completed [facility] Vaccine Series Complete: YESThis Data wa s Submitted to [facility] Via [facility] ([employer]). COVID-19 VACCINE Moderna 08/06/2020 12:00:00 AM EDT completed [facility] Vaccine Series Complete: NOThis Data was Submitted to [facility] Via [employer] ([employer]). COVID-19 VACCINE, MRNA-1273, LNP-S (MODERNA)/PF 08/06/2020 1 2:00:00 AM EDT completed [facility] INFLUENZA VACCINE QUADRIVALENT 2019- (65 YR UP)/MF59 C.1/PF 02/03/2020 12:00:00 AM EDT completed [facility] Medications Medication Brand Name Start Date Product Form Dose Route Admi nistrative Instructions Pharmacy Instructions Status Indications Reaction Description Data Source(s) Amoxicillin 875 MG / Clavulanate 125 MG Oral Tablet 87 5-125 mg AMOXICILLIN/POTASSIUM CLAV 02/26/2021 12:00:00 AM EDT tablet 20 TAKE ONE TABLET BY MOUTH TWICE A DAY FOR 10 DAYS TAKE ONE TABLET BY MOUTH TWICE A DAY FOR 10 DAYS SOLD: 02/26/2021 [facility] Cephalexin 500 MG Oral Capsule CEPHALEXIN 11/30/2020 12:00:00 AM EDT capsule 28 TAKE ONE CAPSULE BY MOUTH FOUR TIMES A DAY FOR 7 DAYS TAKE ONE CAPSULE BY MOUTH FOUR TIMES A DAY FOR 7 DAYS SOLD: 11/30/2020 [facility] Cephalexin 500 MG Oral Capsule Cephalexin 500 MG 11/29/2020 12:00:0 0 AM EDT 1.0 {capsule} active Cephalexin 500 MG eCW1 ([facility]) Cephalexin 500 MG Oral Capsule Cephalexin 500 MG 11/29/2020 12:00:0 0 AM EDT 1.0 {capsule} active eCW1 ([facility]) Actigall 300 MG UNK 11/29/2020 12:00:00 AM EDT 1.0 {capsule} active Actigall 300 MG eCW1 ([facility]) Actigall 300 MG UNK 11/29/2020 12:00:00 AM EDT 1.0 {capsule} active eCW1 ([facility]) Insurance Providers Payer name Policy type / Coverage type Policy ID Covered green party ID Covered green party's relationship to muller Policy Muller Plan Information MEDICARE COMPLETE [id number] SP [id number] UHC UNITED MEDICARE COMPLETE G [id number] Self [id number] UHC MEDICARE [id number] Sarita [id number] MEDICARE COMPLETE [id number] SP [id number] MEDICARE COMPLETE [id number] SP [id number] MEDICARE COMPLETE [id number] 92 [id number] [facility] Medicare Commercial [id number] Self [id number] ANSI-Medicare Part B [id number] Medicaid [place] Medicaid [id number] Self [id number] [facility] Communty Plan Medicaid [id number] Self [id number] MEDICAID [place] MC [id number] 18 [id number] [facility] COMMUNTY PLAN [id number] 18 [id number] ANSI-Medicare Part B [id number] ANSI-Medicare Part B [id number] ANSI-Medicare Part B [id number] ANSI-Medicare Part B [id number] MEDICARE COMPLETE-[facility] O [id number] S [id number] UN MEDICARE-O/P [id number] 18 [id number] UN MEDICARE-CLINIC [id number] 18 [id number] [facility] O [id number] S [id number] Managed Care - [facility] O [id number] S [id number] MEDICARE COMPLETE [id number] SP [id number] COUNTS INCLUDE 234 BEDS AT THE [facility] COMMUNITY PLAN [facility] [id number] SP [id number] [facility] Secure Horizons P [id number] S [id number] Medicaid S UNAVAILABLE S UNAVAILA BLE MEDICARE COMPLETE [id number] SP [id number] ANSI-Medicare Part B [id number] Problems, Conditions, and Diagnoses Code Display Name Description Problem Type Effective Dates Data Source(s) N18.3 Chronic kidney disease stage 3 CKD (open cut examiner flora kidney disease) stage 3, GFR 30-59 ml/min Problem 11/29/2020 12:00:00 AM EDT eCW1 ([facility]) E16.2 Hypoglycemia Hypoglycemia Problem 05/31/2020 12:00:00 A M EST eCW1 ([facility]) Surgeries/Procedures No Information Results ID Date Data Source INSULIN LEVEL 05/31/2020 12:00:00 AM EST eCW1 ([facility]) Name Value Range Interpretation Code Description Data Tanna rce(s) Supporting Document(s) 8.5 2.6-24.9 INSULIN LEVEL eCW1 ([facility]) ID Date Data Source TSH 05/31/2020 12:00:00 AM EST eCW1 ([facility]) Name Value Range Interpretation Code Description Data Tanna rce(s) Supporting Document(s) 1.380 0.358-3.740 THYROID STIMULATING HORM ONE eCW1 ([facility]) ID Date Data Source LIPID PANEL (CARDIAC RISK) 05/31/2020 12:00:00 AM EST eCW1 ( [facility]) Name Value Range Interpretation Code Description Data Tanna rce(s) Supporting Document(s) Triglyceride [Mass/volume] in Serum or Plasma by calculation 97 <150 TRIGLYCERIDES LEVEL eCW1 ([facility]) Cholesterol in HDL [Moles/volume] in Serum or Plasma 30 >40 HDL CHOLESTEROL eCW1 ([facility]) Cholesterol [Moles/volume] in Serum or Plasma 103 <200 CHOLESTEROL LEVEL eCW1 ([facility]) Cholesterol in LDL [Mass/volume] in Serum or Plasma by calculation 54 <100 LDL CHOLESTEROL eCW1 ([facility]) 73 NON-HDL-C eCW1 ([facility]) 3.433 <5 CHOLESTEROL RISK RATIO eCW1 ([facility]) ID Date Data Source Comprehensive Metabolic Profile (CMP) 05/31/2020 12:00:00 AM EST eCW1 ([facility]) Name Value Range Interpretation Code Description Data Tanna rce(s) Supporting Document(s) 91 70-100 GLUCOSE, FASTING eCW1 ([facility]) 18 7-18 BLOOD UREA NITROGEN eCW1 ([facility]) 1.52 0.70-1.30 CREATININE FOR GFR eCW1 ([facility]) 47.8 >42 GLOMERULAR FILTRATION RATE eCW 1 ([facility]) 5.0 3.5-5.1 POTASSIUM SERUM eCW1 ([facility]) 138 136-145 SODIUM LEVEL eCW1 ([facility]) 104 98-107 CHLORIDE LEVEL eCW1 ([facility]) 30 21-32 CARBON DIOXIDE LEVEL eCW1 ([facility]) 9.0 8.8-10.2 CALCIUM LEVEL eCW1 ([facility]) 15 7-37 AST/SGOT eCW1 ([facility]) 25 12-78 ALT/SGPT eCW1 ([facility]) 145 45-117 ALKALINE PHOSPHATASE eCW1 ([facility]) 0.6 0.2-1.0 BILIRUBIN,TOTAL eCW1 ([facility]) 7.1 6.4-8.2 TOTAL PROTEIN eCW1 ([facility]) 3.9 3.2-5.2 ALBUMIN eCW1 ([facility]) 1.2 ALBUMIN/GLOBULIN RATIO eCW1 ([facility]) ID Date Data Source CBC - Complete Blood Count 05/31/2020 12:00:00 AM EST eCW1 ( [facility]) Name Value Range Interpretation Code Description Data Tanna rce(s) Supporting Document(s) 10.3 4.0-10.0 WHITE BLOOD COUNT eCW1 ([facility]) 14.6 13.5-17.5 HEMOGLOBIN eCW1 ([facility]) 4.73 4.30-6.10 RED BLOOD COUNT eCW1 ([facility]) 44.4 42.0-52.0 HEMATOCRIT eCW1 ([facility]) 93.9 80.0-96.0 MEAN CORPUSCULAR VOLUME e CW1 ([facility]) 30.9 27.0-33.0 MEAN CORPUSCULAR HEMOGLOB IN eCW1 ([facility]) 32.9 32.0-36.5 MEAN CORPUSCULAR HGB CONC eCW1 ([facility]) 12.5 11.5-14.5 RED CELL DISTRIBUTION WID TH eCW1 ([facility]) 170 150-450 PLATELET COUNT, AUTOMATED eCW1 ([facility]) Procedure Social History No Information Vital Signs ID Date Data Source UNK Name Value Range Interpretation Code Description Data Source(s) Body weight 175.9 [lb_av] 175.9 [lb_av] eCW1 ([facility]) Body weight 79.79 kg 79.79 kg W1 ([facility]) Body height 68 [in_i] 68 [in_i] W1 ([facility]) Body mass index (BMI) [Ratio] 26.74 kg/m2 26.74 kg/m2 W1 ([facility]) Heart rate 56 /min 56 /min eCW1 ([facility]) Respiratory rate 18 /min 18 /min eCW1 ([facility]) Body temperature 97 [degF] 97 [degF] eCW1 ([facility]) Systolic blood pressure 122 mm[Hg] 122 mm[Hg] e CW1 ([facility]) Diastolic blood pressure 74 mm[Hg] 74 mm[Hg] eCW1 ([facility]) Body height 68 [in_i] 68 [in_i] eCW1 ([facility]) Body weight 178.6 [lb_av] 178.6 [lb_av] eCW1 ([facility]) Body mass index (BMI) [Ratio] 27.15 kg/m2 27.15 kg/m2 eCW1 ([facility]) Heart rate 54 /min 54 /min eCW1 ([facility]) Respiratory rate 18 /min 18 /min eCW1 ([facility]) Body temperature 97.7 [degF] 97.7 [degF] eCW1 ( [facility]) Systolic blood pressure 130 mm[Hg] 130 mm[Hg] e CW1 ([facility]) Diastolic blood pressure 80 mm[Hg] 80 mm[Hg] eCW1 ([facility]) Patient Treatment Plan of Care Planned Activity Planned Date Details Description Data Source (s) Cephalexin 500 MG Oral Capsule 11/29/2020 12:00:00 AM EDT eCW1 ([facility]) Actigall 300 MG 11/29/2020 12:00:00 AM EDT eCW1 ([facility]) Cephalexin 500 MG Oral Capsule 11/29/2020 12:00:00 AM EDT eCW1 ([facility]) Actigall 300 MG 11/29/2020 12:00:00 AM EDT eCW1 ([facility])
--- OUTSIDE RECORDS SUMMARY | 2021-03-01 11:36 | CCD ---
Author Author [facility] Organization [facility] Address Unknown Phone Unavailable Support Name Relationship Address Phone MICHAEL ROTH Next Of Kin [address] [place] [address] BRET POTTS Next Of Kin Unknown STBRET BANSAL Next Of Kin [address] [place] [address] CHRISTINEBRET JIANG Next Of Kin [address] [place] [address] RAFAEL, BRET Next Of Kin [address] [place] [address] Unavailable RE Next Of Kin Unknown RAFAEL, ELVIRA Next Of Kin [address] [place] [address] STERGES, GUS Next Of Kin Unknown Unavailable CHRISTINE, BRET Next Of Kin Unknown Unavailable BRET FRANCISCO ECON [address] [place] [address] Unavailable Michael Roth ECON [address] [place] [address], [place] [address] Unavailable RAFAEL, ELVIRA ECON [address] [place] [address], [place] [address] Unavailable Re-disclosure Warning The records that you [...] is protected by Article 27-F of the [facility] Public Health law. If you continue you may have access to information: Regarding HIV / AIDS; Provided by facilities licensed or operated by the [facility] Office of Mental Health; or Provided by the [facility] Office for People With Developmental Disabilities. If such information is present, then the following [facility] mandated warning applies: This information [...] Description Data Source(s) Unknown Male Problem MEDENT ([facility] ) Encounters Encounter Providers Location Date Indications Data Source(s ) Unknown [address] [facility] [address] 11/30/2020 12:00:00 AM EDT eCW1 ([facility]) Office Visit, Est Pt., Level 4 [address] [place] [address] 11/29/2020 12:00:00 AM EDT eCW1 ([facility]) Outpatient [address] [facility] [id number] 05/31/2020 12:00:00 AM EST eCW1 ([facility]) Unknown [address] [facility] [id number] 05/10/2020 12:00:00 AM EST eCW1 ([facility]) Unknown [address] [facility] [address] 04/01/2020 12:00:00 AM EST eCW1 ([facility]) Immunizations Vaccine Date Status Description Data Source(s) COVID-19 VACC,MRNA(MODERNA)/PF 09/06/2020 12:00:00 AM EDT completed [facility] COVID-19 VACCINE Moderna 09/06/2020 12:00:00 AM EDT completed [facility] Vaccine Series Complete: YESThis Data wa s Submitted to [facility] Via After[facility]. COVID-19 VACCINE Moderna 08/06/2020 12:00:00 AM EDT completed [facility] Vaccine Series Complete: NOThis Data was Submitted to [facility] Via After[employer]. COVID-19 VACCINE, MRNA-1273, LNP-S (MODERNA)/PF 08/06/2020 1 [...] {capsule} active Cephalexin 500 MG eCW1 ([facility]) Cephalexin 500 MG Oral Capsule Cephalexin 500 MG 11/29/2020 12:00:0 0 AM EDT 1.0 {capsule} active eCW1 ([facility]) Actigall 300 MG UNK 11/29/2020 12:00:00 AM EDT 1.0 {capsule} active Actigall 300 MG eCW1 ([facility]) Actigall 300 MG UNK 11/29/2020 12:00:00 AM EDT 1.0 {capsule} active eCW1 ([facility]) Insurance Providers Payer name Policy type / Coverage type Policy ID Covered republican ID Covered republican's relationship to muller Policy Muller Plan Information MEDICARE COMPLETE [id number] SP [id number] UHC UNITED MEDICARE COMPLETE G [id number] Self [id number] UHC MEDICARE [id number] Sarita [id number] MEDICARE COMPLETE [id number] SP [id number] MEDICARE COMPLETE [id number] SP [id number] MEDICARE COMPLETE [id number] 92 [id number] [facility] Medicare Commercial [id number] Self [id number] ANSI-Medicare Part B [id number] Medicaid [place] Medicaid [id number] Self [id number] [facility] Communty Plan Medicaid [id number] Self [id number] MEDICAID [place] MC [id number] 18 [id number] [facility] COMMUNTY PLAN [id number] 18 [id number] ANSI-Medicare Part B [id number] ANSI-Medicare Part B [id number] ANSI-Medicare Part B [id number] ANSI-Medicare Part B [id number] MEDICARE COMPLETE-[facility] O [id number] S [id number] UN MEDICARE-O/P [id number] 18 [id number] UN MEDICARE-CLINIC [id number] 18 [id number] [facility] O [id number] S [id number] Managed Care - [facility] O [id number] S [id number] MEDICARE COMPLETE [id number] SP [id number] [facility] COMMUNITY PLAN [facility] [id number] SP [id number] [facility] Secure Horizons P [id number] S [id number] Medicaid S UNAVAILABLE S UNAVAILA BLE MEDICARE COMPLETE [id number] SP [id number] ANSI-Medicare Part B [id number] Problems, Conditions, and Diagnoses Code Display Name Description Problem Type Effective Dates Data Source(s) N18.3 Chronic kidney disease stage 3 CKD (fruit express agent flora kidney disease) stage 3, GFR 30-59 ml/min Problem 11/29/2020 12:00:00 AM EDT eCW1 ([facility]) E16.2 Hypoglycemia Hypoglycemia Problem 05/31/2020 12:00:00 A M EST eCW1 ([facility]) Surgeries/Procedures No Information Results ID Date Data Source INSULIN LEVEL 05/31/2020 12:00:00 AM EST eCW1 ([facility]) Name Value Range Interpretation Code Description Data Tanna rce(s) Supporting Document(s) 8.5 2.6-24.9 INSULIN LEVEL eCW1 ([facility]) ID Date Data Source TSH 05/31/2020 12:00:00 AM EST eCW1 ([facility]) Name Value Range Interpretation Code Description Data Tanna rce(s) Supporting Document(s) 1.380 0.358-3.740 THYROID STIMULATING HORM ONE eCW1 ([facility]) ID Date Data Source LIPID PANEL (CARDIAC RISK) 05/31/2020 12:00:00 AM EST eCW1 ( [facility]) Name Value Range Interpretation Code Description Data Tanna rce(s) Supporting Document(s) Triglyceride [Mass/volume] in Serum or Plasma by calculation 97 <150 TRIGLYCERIDES LEVEL eCW1 ([facility]) Cholesterol in HDL [Moles/volume] in Serum or Plasma 30 >40 HDL CHOLESTEROL eCW1 ([facility]) Cholesterol [Moles/volume] in Serum or Plasma 103 <200 CHOLESTEROL LEVEL eCW1 ([facility]) Cholesterol in LDL [Mass/volume] in Serum or Plasma by calculation 54 <100 LDL CHOLESTEROL eCW1 ([facility]) 73 NON-HDL-C eCW1 ([facility]) 3.433 <5 CHOLESTEROL RISK RATIO eCW1 ([facility]) ID Date Data Source Comprehensive Metabolic Profile (CMP) 05/31/2020 12:00:00 AM EST eCW1 ([facility]) Name Value Range Interpretation Code Description Data Tanna rce(s) Supporting Document(s) 91 70-100 GLUCOSE, FASTING eCW1 ([facility]) 18 7-18 BLOOD UREA NITROGEN eCW1 ([facility]) 1.52 0.70-1.30 CREATININE FOR GFR eCW1 ([facility]) 47.8 >42 GLOMERULAR FILTRATION RATE eCW 1 ([facility]) 5.0 3.5-5.1 POTASSIUM SERUM eCW1 ([facility]) 138 136-145 SODIUM LEVEL eCW1 ([facility]) 104 98-107 CHLORIDE LEVEL eCW1 ([facility]) 30 21-32 CARBON DIOXIDE LEVEL eCW1 ([facility]) 9.0 8.8-10.2 CALCIUM LEVEL eCW1 ([facility]) 15 7-37 AST/SGOT eCW1 ([facility]) 25 12-78 ALT/SGPT eCW1 ([facility]) 145 45-117 ALKALINE PHOSPHATASE eCW1 ([facility]) 0.6 0.2-1.0 BILIRUBIN,TOTAL eCW1 ([facility]) 7.1 6.4-8.2 TOTAL PROTEIN eCW1 ([facility]) 3.9 3.2-5.2 ALBUMIN eCW1 ([facility]) 1.2 ALBUMIN/GLOBULIN RATIO eCW1 ([facility]) ID Date Data Source CBC - Complete Blood Count 05/31/2020 12:00:00 AM EST eCW1 ( [facility]) Name Value Range Interpretation Code Description Data Tanna rce(s) Supporting Document(s) 10.3 4.0-10.0 WHITE BLOOD COUNT eCW1 ([facility]) 14.6 13.5-17.5 HEMOGLOBIN eCW1 ([facility]) 4.73 4.30-6.10 RED BLOOD COUNT eCW1 ([facility]) 44.4 42.0-52.0 HEMATOCRIT eCW1 ([facility]) 93.9 80.0-96.0 MEAN CORPUSCULAR VOLUME e CW1 ([facility]) 30.9 27.0-33.0 MEAN CORPUSCULAR HEMOGLOB IN eCW1 ([facility]) 32.9 32.0-36.5 MEAN CORPUSCULAR HGB CONC eCW1 ([facility]) 12.5 11.5-14.5 RED CELL DISTRIBUTION WID TH eCW1 ([facility]) 170 150-450 PLATELET COUNT, AUTOMATED eCW1 ([facility]) Procedure Social History No Information Vital Signs ID Date Data Source UNK Name Value Range Interpretation Code Description Data Source(s) Body weight 175.9 [lb_av] 175.9 [lb_av] eCW1 ([facility]) Body weight 79.79 kg 79.79 kg W1 ([facility]) Body height 68 [in_i] 68 [in_i] W1 ([facility]) Body mass index (BMI) [Ratio] 26.74 kg/m2 26.74 kg/m2 W1 ([facility]) Heart rate 56 /min 56 /min eCW1 ([facility]) Respiratory rate 18 /min 18 /min eCW1 ([facility]) Body temperature 97 [degF] 97 [degF] eCW1 ([facility]) Systolic blood pressure 122 mm[Hg] 122 mm[Hg] e CW1 ([facility]) Diastolic blood pressure 74 mm[Hg] 74 mm[Hg] eCW1 ([facility]) Body weight 178.6 [lb_av] 178.6 [lb_av] eCW1 ([facility]) Body height 68 [in_i] 68 [in_i] eCW1 ([facility]) Body mass index (BMI) [Ratio] 27.15 kg/m2 27.15 kg/m2 eCW1 ([facility]) Heart rate 54 /min 54 /min eCW1 ([facility]) Respiratory rate 18 /min 18 /min eCW1 ([facility]) Body temperature 97.7 [degF] 97.7 [degF] eCW1 ( [facility]) Systolic blood pressure 130 mm[Hg] 130 mm[Hg] e CW1 ([facility]) Diastolic blood pressure 80 mm[Hg] 80 mm[Hg] eCW1 ([facility]) Patient Treatment Plan of Care Planned Activity Planned Date Details Description Data Source (s) Cephalexin 500 MG Oral Capsule 11/29/2020 12:00:00 AM EDT eCW1 ([facility]) Actigall 300 MG 11/29/2020 12:00:00 AM EDT eCW1 ([facility]) Cephalexin 500 MG Oral Capsule 11/29/2020 12:00:00 AM EDT eCW1 ([facility]) Actigall 300 MG 11/29/2020 12:00:00 AM EDT eCW1 ([facility])
[2021-03-01 12:31] LABS: BASO % 0.2 % (0.0-1.0); EOS # 0.1 10^3/uL (0.0-0.5); HEMATOCRIT 41.2 % (42.0-52.0); HEMOGLOBIN 13.8 g/dl (13.5-17.5); LYMPH # 1.6 10^3/uL (1.5-5.0); LYMPH % 13.2 % (24.0-44.0); MEAN CORPUSCULAR HEMOGLOBIN 31.2 pg (27.0-33.0); MEAN CORPUSCULAR HGB CONC 33.5 g/dl (32.0-36.5); MONO # 1.2 10^3/uL (0.0-0.8); MONO % 9.6 % (2.0-8.0); NEUTROPHILS # 9.2 10^3/uL (1.5-8.5); NEUTROPHILS % 75.4 % (36.0-66.0); PLATELET COUNT, AUTOMATED 167 10^3/uL (150-450); RED BLOOD COUNT 4.43 10^6/uL (4.30-6.10); WHITE BLOOD COUNT 12.2 10^3/uL (4.0-10.0)
--- NOTE | 2021-03-01 12:35 | REP ---
INDICATION: Cellulitis hand/ COMPARISON: None. TECHNIQUE: Four views left hand. FINDINGS: There is no acute fracture or dislocation. No osseous destruction or periosteal reaction is seen. Scattered sub cortical cystic changes are seen in the distal radius, and multiple carpal bones, in the base and head of the 1st metacarpal, and in the bases of the 2nd, 3rd and 5th proximal phalanges. There is moderate narrowing of the 1st carpal/metacarpal joint and metacarpophalangeal joint. There is mild narrowing of the metacarpophalangeal and interphalangeal joints diffusely. There is mild radiocarpal joint space narrowing. IMPRESSION: No fracture or dislocation. No radiographic signs of osteomyelitis. Degenerative changes. <Electronically signed by Thaddeus Carballo > 03/01/21 [id number]
[2021-03-01] MEDS ORDERED: PIPERACILLIN/TAZOBACTAM SOD 3.375 GM in D5W MINI-BAG PLUS 50 ML IV ONE (12:50)
[2021-03-01 13:05] LABS: ALBUMIN 3.3 GM/DL (3.2-5.2); ALT/SGPT 20 U/L (12-78); BILIRUBIN,DIRECT 0.3 MG/DL (0.0-0.2); BILIRUBIN,TOTAL 1.1 MG/DL (0.2-1.0); C REACTIVE PROTEIN QUANTITATIV 8.73 MG/DL (0.00-0.30); CK-MB VALUE MASS 2.4 NG/ML (<3.6); CPK CREATINE PHOSPHOKINASE 170 U/L (39-308); LIPASE 57 U/L (73-393); MB/CK RELATIVE INDEX 1.41 (< OR =4); TOTAL PROTEIN 7.2 GM/DL (6.4-8.2); TROPONIN I < 0.02 NG/ML (< 0.10)
[2021-03-01] MEDS ORDERED: NS 1,000 ML IV ONE (13:30)
[2021-03-01 13:43] LABS: ERYTHROCYTE SEDIMENTATION RATE 35 mm/hr (0-20)
[2021-03-01 13:44] LABS: RSV AMPLIFICATION NEGATIVE (NEGATIVE)
[2021-03-01] MEDS ORDERED: LIDOCAINE 1% MDV 20ML VIAL SC ONE (13:55)
[2021-03-01] MEDS ORDERED: ASPI81TA26 PO (14:49)
[2021-03-01] MEDS ORDERED: HOME MED LIST COMPLETE! XX SCH (14:50)
[2021-03-01] MEDS ORDERED: traMADol 50 MG TAB PO PRN (14:55)
[2021-03-01] MEDS ORDERED: oxyCODONE 5MG TAB PO PRN (14:55)
[2021-03-01] MEDS ORDERED: ACETAMINOPHEN TAB 650MG DOSE (2X325MG) PO PRN (14:55)
--- OUTSIDE RECORDS SUMMARY | 2021-03-01 14:59 | CCD ---
Author Author [facility] Address Unknown Phone Unavailable Support Name Relationship Address Phone MICHAEL ROTH Next Of Kin [address] [place] [id number] BRET POTTS Next Of Kin Unknown STBRET BANSAL Next Of Kin [address] [place] [address] CHRISTINEBRET JIANG Next Of Kin [address] [place] [address] RAFAEL, BRET Next Of Kin [address] [place] [id number] Unavailable RE Next Of Kin Unknown RAFAEL, ELVIRA Next Of Kin [address] [place] [address] STERGES, GUS Next Of Kin Unknown Unavailable CHRISTINE, BRET Next Of Kin Unknown Unavailable BRET FRANCISCO ECON [address] [place] [address] Unavailable Michael Roth ECON [address] [place] [address], [place] [address] Unavailable RAFAEL, ELVIRA ECON [address] [place] [address], [place] [address] Unavailable Re-disclosure Warning The records that you [...] is protected by Article 27-F of the [facility] Public Health law. If you continue you may have access to information: Regarding HIV / AIDS; Provided by facilities licensed or operated by the [facility] Office of Mental Health; or Provided by the [facility] Office for People With Developmental Disabilities. If such information is present, then the following [facility] mandated warning applies: This information has [...] law may result in a fine or mcfp sentence or both. A general authorization for the release of medical or other information is NOT sufficient authorization for further disc losure. Family History Family Member Name Family Member Gender Family Member Status Date o f Status Description Data Source(s) Unknown Male Problem MEDENT ([facility], ) Encounters Encounter Providers Location Date Indications Data Source(s ) Unknown [address] [facility] [id number] 11/30/2020 12:00:00 AM EDT eCW1 ([facility]) Office Visit, Est Pt., Level 4 [address] [place] [address] 11/29/2020 12:00:00 AM EDT eCW1 ([facility]) Outpatient [address] [facility] [id number] 05/31/2020 12:00:00 AM EST eCW1 ([facility]) Unknown [address] [facility] [id number] 05/10/2020 12:00:00 AM EST eCW1 ([facility]) Unknown [address] [facility] [id number] 04/01/2020 12:00:00 AM EST eCW1 ([facility]) Immunizations Vaccine Date Status Description Data Source(s) COVID-19 VACC,MRNA(MODERNA)/PF 09/06/2020 12:00:00 AM EDT completed [facility] COVID-19 VACCINE Moderna 09/06/2020 12:00:00 AM EDT completed [facility] Vaccine Series Complete: YESThis Data wa s Submitted to [facility] [employer]. COVID-19 VACCINE Moderna 08/06/2020 12:00:00 AM EDT completed [facility] Vaccine Series Complete: NOThis Data was Submitted to [facility] [employer]. COVID-19 VACCINE, MRNA-1273, LNP-S (MODERNA)/PF 08/06/2020 1 [...] 1.0 {capsule} active Cephalexin 500 MG eCW1 ([facility]) Cephalexin 500 MG Oral Capsule Cephalexin 500 MG 11/29/2020 12:00:0 0 AM EDT 1.0 {capsule} active eCW1 ([facility]) Actigall 300 MG UNK 11/29/2020 12:00:00 AM EDT 1.0 {capsule} active Actigall 300 MG eCW1 ([facility]) Actigall 300 MG UNK 11/29/2020 12:00:00 AM EDT 1.0 {capsule} active eCW1 ([facility]) Insurance Providers Payer name Policy type / Coverage type Policy ID Covered constitution party ID Covered constitution party's relationship to muller Policy Muller Plan Information MEDICARE COMPLETE [id number] SP [id number] UHC UNITED MEDICARE COMPLETE G [id number] Self [id number] UHC MEDICARE [id number] Sarita [id number] MEDICARE COMPLETE [id number] SP [id number] MEDICARE COMPLETE [id number] SP [id number] MEDICARE COMPLETE [id number] [facility] Medicare Commercial [id number] Self [id number] ANSI-Medicare Part B [id number] Medicaid [place] Medicaid [id number] Self [id number] [facility] Communty Plan Medicaid [id number] Self [id number] MEDICAID [place] [id number] [facility] COMMUNTY PLAN [id number] 18 [id number] ANSI-Medicare Part B [id number] ANSI-Medicare Part B [id number] ANSI-Medicare Part B [id number] ANSI-Medicare Part B [id number] MEDICARE COMPLETE-[facility] O [id number] S [id number] UN MEDICARE-O/P [id number] 18 [id number] [place] MEDICARE-CLINIC [id number] 18 [id number] [facility] O [id number] S [id number] Managed Care - [facility] O [id number] S [id number] MEDICARE COMPLETE [id number] SP [id number] [facility] COMMUNITY PLAN [facility] [id number] SP [id number] [facility] Secure Horizons P [id number] S [id number] Medicaid S UNAVAILABLE S [place] BLE MEDICARE COMPLETE [id number] SP [id number] ANSI-Medicare Part B [id number] Problems, Conditions, and Diagnoses Code Display Name Description Problem Type Effective Dates Data Source(s) N18.3 Chronic kidney disease stage 3 CKD (patient navigator flora kidney disease) stage 3, GFR 30-59 ml/min Problem 11/29/2020 12:00:00 AM EDT eCW1 ([facility]) E16.2 Hypoglycemia Hypoglycemia Problem 05/31/2020 12:00:00 A M EST eCW1 ([facility]) Surgeries/Procedures No Information Results ID Date Data Source INSULIN LEVEL 05/31/2020 12:00:00 AM EST eCW1 ([facility]) Name Value Range Interpretation Code Description Data Tanna rce(s) Supporting Document(s) 8.5 2.6-24.9 INSULIN LEVEL eCW1 ([facility]) ID Date Data Source TSH 05/31/2020 12:00:00 AM EST eCW1 ([facility]) Name Value Range Interpretation Code Description Data Tanna rce(s) Supporting Document(s) 1.380 0.358-3.740 THYROID STIMULATING HORM ONE eCW1 ([facility]) ID Date Data Source LIPID PANEL (CARDIAC RISK) 05/31/2020 12:00:00 AM EST eCW1 ( [facility]) Name Value Range Interpretation Code Description Data Tanna rce(s) Supporting Document(s) Triglyceride [Mass/volume] in Serum or Plasma by calculation 97 <150 TRIGLYCERIDES LEVEL eCW1 ([facility]) Cholesterol in HDL [Moles/volume] in Serum or Plasma 30 >40 HDL CHOLESTEROL eCW1 ([facility]) Cholesterol [Moles/volume] in Serum or Plasma 103 <200 CHOLESTEROL LEVEL eCW1 ([facility]) Cholesterol in LDL [Mass/volume] in Serum or Plasma by calculation 54 <100 LDL CHOLESTEROL eCW1 ([facility]) 73 NON-HDL-C eCW1 ([facility]) 3.433 <5 CHOLESTEROL RISK RATIO eCW1 ([facility]) ID Date Data Source Comprehensive Metabolic Profile (CMP) 05/31/2020 12:00:00 AM EST eCW1 ([facility]) Name Value Range Interpretation Code Description Data Tanna rce(s) Supporting Document(s) 91 70-100 GLUCOSE, FASTING eCW1 ([facility]) 18 7-18 BLOOD UREA NITROGEN eCW1 ([facility]) 1.52 0.70-1.30 CREATININE FOR GFR eCW1 ([facility]) 47.8 >42 GLOMERULAR FILTRATION RATE eCW 1 ([facility]) 5.0 3.5-5.1 POTASSIUM SERUM eCW1 ([facility]) 138 136-145 SODIUM LEVEL eCW1 ([facility]) 104 98-107 CHLORIDE LEVEL eCW1 ([facility]) 30 21-32 CARBON DIOXIDE LEVEL eCW1 ([facility]) 9.0 8.8-10.2 CALCIUM LEVEL eCW1 ([facility]) 15 7-37 AST/SGOT eCW1 ([facility]) 25 12-78 ALT/SGPT eCW1 ([facility]) 145 45-117 ALKALINE PHOSPHATASE eCW1 ([facility]) 0.6 0.2-1.0 BILIRUBIN,TOTAL eCW1 ([facility]) 7.1 6.4-8.2 TOTAL PROTEIN eCW1 ([facility]) 3.9 3.2-5.2 ALBUMIN eCW1 ([facility]) 1.2 ALBUMIN/GLOBULIN RATIO eCW1 ([facility]) ID Date Data Source CBC - Complete Blood Count 05/31/2020 12:00:00 AM EST eCW1 ( [facility]) Name Value Range Interpretation Code Description Data Tanna rce(s) Supporting Document(s) 10.3 4.0-10.0 WHITE BLOOD COUNT eCW1 ([facility]) 14.6 13.5-17.5 HEMOGLOBIN eCW1 ([facility]) 4.73 4.30-6.10 RED BLOOD COUNT eCW1 ([facility]) 44.4 42.0-52.0 HEMATOCRIT eCW1 ([facility]) 93.9 80.0-96.0 MEAN CORPUSCULAR VOLUME e CW1 ([facility]) 30.9 27.0-33.0 MEAN CORPUSCULAR HEMOGLOB IN eCW1 ([facility]) 32.9 32.0-36.5 MEAN CORPUSCULAR HGB CONC eCW1 ([facility]) 12.5 11.5-14.5 RED CELL DISTRIBUTION WID TH eCW1 ([facility]) 170 150-450 PLATELET COUNT, AUTOMATED eCW1 ([facility]) Procedure Social History No Information Vital Signs ID Date Data Source UNK Name Value Range Interpretation Code Description Data Source(s) Body weight 175.9 [lb_av] 175.9 [lb_av] eCW1 ([facility]) Body weight 79.79 kg 79.79 kg W1 ([facility]) Body height 68 [in_i] 68 [in_i] W1 ([facility]) Body mass index (BMI) [Ratio] 26.74 kg/m2 26.74 kg/m2 W1 ([facility]) Heart rate 56 /min 56 /min eCW1 ([facility]) Respiratory rate 18 /min 18 /min eCW1 ([facility]) Body temperature 97 [degF] 97 [degF] eCW1 ([facility]) Systolic blood pressure 122 mm[Hg] 122 mm[Hg] e CW1 ([facility]) Diastolic blood pressure 74 mm[Hg] 74 mm[Hg] eCW1 ([facility]) Body weight 178.6 [lb_av] 178.6 [lb_av] eCW1 ([facility]) Body height 68 [in_i] 68 [in_i] eCW1 ([facility]) Body mass index (BMI) [Ratio] 27.15 kg/m2 27.15 kg/m2 eCW1 ([facility]) Heart rate 54 /min 54 /min eCW1 ([facility]) Respiratory rate 18 /min 18 /min eCW1 ([facility]) Body temperature 97.7 [degF] 97.7 [degF] eCW1 ( [facility]) Systolic blood pressure 130 mm[Hg] 130 mm[Hg] e CW1 ([facility]) Diastolic blood pressure 80 mm[Hg] 80 mm[Hg] eCW1 ([facility]) Patient Treatment Plan of Care Planned Activity Planned Date Details Description Data Source (s) Cephalexin 500 MG Oral Capsule 11/29/2020 12:00:00 AM EDT eCW1 ([facility]) Actigall 300 MG 11/29/2020 12:00:00 AM EDT eCW1 ([facility]) Cephalexin 500 MG Oral Capsule 11/29/2020 12:00:00 AM EDT eCW1 ([facility]) Actigall 300 MG 11/29/2020 12:00:00 AM EDT eCW1 ([facility])
--- NOTE | 2021-03-01 15:12 | HPEPDOC ---
General Date of Admission Mar 01, 2021 at 14:52 Date of Service: Mar 01, 2021 Chief Complaint The patient is a 75-year-old male admitted with a reason for visit of Cat Bite, Cellulitis Of Hand. History of Present Illness Mr. Wasserman is a 75-year-old male with hypertension, hyperlipidemia, and current tobacco use who presents with left hand cat bite complicated by open wound and cellulitis. Patient recently obtained a rescue cat recently. On February 26, he found his cat outside. As his bring the cat inside, the cat bit his left hand and left a large wound. He came into the ED and the ED provider placed 3 stitches. Patient was discharged home with Augmentin. Over the next few days, the wound became infected. His left hand became red, swollen, and painful. He returned to the ED for evaluation. X-ray of the hand did not demonstrate any fracture or osteomyelitis. Orthopedic surgery, Dr. Jung, evaluated the patient. He remove the stitches, debrided the wound, and placed new stitches. He recommended IV antibiotics and advanced wound care consult. Dr. Jung will continue following the patient. When I saw patient in the ED, he was feeling better. He denied any fever or chills, chest pain, dyspnea, abdominal pain, or dysuria. He has a chronic cough secondary to smoking. Denies any other rashes or bruises other than his left hand. Denies any anxiety or depression. His vital signs have been stable. He is afebrile. His left hand was hot, swollen, and erythematous. He does have mild leukocytosis of 12.2. CRP is elevated at 8.73. Patient was given Zosyn and a liter of fluids in the ED. Patient be admitted for left hand cellulitis secondary to cat bite wound Home Medications Scheduled Aspirin (Aspirin EC) 81 Mg Tablet.dr, 162 MG PO DAILY, (Reported) Atenolol (Atenolol) 50 Mg Tab, 50 MG PO DAILY, (Reported) Atorvastatin Calcium (Atorvastatin Calcium) 80 Mg Tab, 80 MG PO DAILY, (Reported) Clopidogrel Bisulfate (Clopidogrel) 75 Mg Tab, 75 MG PO DAILY, (Reported) Lisinopril (Lisinopril) 10 Mg Tab, 10 MG PO DAILY, (Reported) Allergies Coded Allergies: No Known Allergies (Unverified , 07/16/18) Past Medical History Medical History 1. Hypertension 2. Hyperlipidemia 3. Cardiovascular disease status post left CEA 4. Diverticulosis Surgical History 1. Left carotid endarterectomy 2. Right ankle fracture status post hardware 3. History of colonoscopies 4. Redo left carotid endarterectomy Family History Father: at the age of 62. History of heart disease Mother: at the age of 89. History of CVA Social History * Smoker: current smoker Alcohol: occationally Drugs: denies A-FIB/CHADSVASC A-FIB History Current/History of A-Fib/PAF?: No Review of Systems Constitutional: Denies: Chills, Fever Eyes: Denies: Vision change ENT: Denies: Sore Throat Skin: Reports: Other (Large left hand wound from cat bite) Pulmonary: Reports: Cough (Chronic); Denies: Dyspnea Cardiovascular: Denies: Chest Pain Gastrointestinal: Denies: Abdominal Pain Genitourinary: Denies: Dysuria Hematologic: Denies: Bruising Neurological: Denies: Numbness Psych: Denies: Anxiety, Depression Physical Examination General Exam: Positive: Alert, Cooperative Eye Exam: Positive: EOMI; Negative: Sclera icteric ENT Exam: Positive: Atraumatic Neck Exam: Positive: Supple Chest Exam: Positive: Clear to auscultation Heart Exam: Positive: Rate Normal, Regular Rhythm Abdomen Exam: Positive: Normal bowel sounds, Soft; Negative: Tenderness Extremity Exam: Negative: Edema Skin Exam: Positive: Other skin issue (Left hand bandaged) Neuro Exam: Positive: Cranial Nerves 3-12 NL Psych Exam: Positive: Mental status NL, Mood NL Vital Signs Vital Signs Date Time Temp Pulse Resp B/P (MAP) Pulse Ox O2 Delivery O2 Flow Rate FiO2 03/01/21 12:29 156/78 (104) 03/01/21 10:01 97.8 62 18 99 Room Air Laboratory Data Labs 24H Laboratory Tests 2 03/01/21 12:11: Immature Granulocyte % (Auto) 0.6, Neutrophils (%) (Auto) 75.4H, Lymphocytes (%) (Auto) 13.2L, Monocytes (%) (Auto) 9.6H, Eosinophils (%) (Auto) 1.0, Basophils ( %) (Auto) 0.2, Neutrophils # (Auto) 9.2H, Lymphocytes # (Auto) 1.6, Monocytes # (Auto) 1.2H, Eosinophils # (Auto) 0.1, Basophils # (Auto) 0.0, Nucleated Red Blood Cells % (auto) 0.0, Erythrocyte Sedimentation Rate 35H, Lactic Acid Level 0.9, Total Bilirubin 1.1H, Direct Bilirubin 0.3H, Aspartate Amino Transf (AST/SGOT) 19, Alanine Aminotransferase (ALT/SGPT) 20, Alkaline Phosphatase 103, Total Creatine Kinase 170, Creatine Kinase MB 2.4, Creatine Kinase MB Relative Index 1.41, Troponin I < 0.02, C-Reactive Protein, Quantitative 8.73H, Total Protein 7.2, Albumin 3.3, Albumin/Globulin Ratio 0.8, Lipase 57L 03/01/21 12:17: POC Glucose (Misc Panel) 111H, POC Sodium (Misc Panel) 133L, POC Potassium (Misc Panel) 5.1, POC Chloride (Misc Panel) 97L, POC Total CO2 (Misc Panel) 27.0, POC Blood Urea Nitrogen (Misc Panel 29H, POC Ionized Calcium (Misc Panel) 4.8, POC Creatinine (Misc Panel) 1.6H, POC Hematocrit (Misc Panel) 43.0 03/01/21 12:22: Coronavirus (COVID-19)(PCR) NEGATIVE, Influenza Type A (RT-PCR) NEGATIVE, Influenza Type B (RT-PCR) NEGATIVE, Respiratory Syncytial Virus (PCR) NEGATIVE CBC/BMP Laboratory Tests 03/01/21 12:11 Microbiology Microbiology 03/01/21 Gram Stain, Received Pending 03/01/21 Wound Culture, Received Pending 03/01/21 Blood Culture, Received Pending 03/01/21 Blood Culture, Received Pending Assessment/Plan Mr. Wasserman is a 75-year-old male with hypertension, hyperlipidemia, and current tobacco use who presents with left hand cat bite complicated by open wound and cellulitis. Orthopedic surgery is following and recommendations are appreciated. Wound cultures have been obtained, pending results. Advance wound care has also been placed. Plan / VTE VTE Prophylaxis Ordered?: Yes Plan Plan 1. Cat bite wound with cellulitis Orthopedic surgery consulted, recommendations appreciated Debrided on 03/01/[address] Jung Advance wound care consulted, recommendations appreciated Zosyn day 1 2. Hypertension Continue atenolol and lisinopril 3. Atherosclerotic disease Patient has left carotid disease status post CEA Continue aspirin, Plavix, and atorvastatin 4. DVT prophylaxis SCDs and teds Disposition: Pending improvement in left hand cellulitis, wound culture results, and advanced wound care consult SANDRA OSEGUERA DO Mar 01, 2021 15:12
--- NOTE | 2021-03-01 15:19 | CR.PDOC ---
General Date of Consultation: Mar 01, 2021 Consultation REASON FOR CONSULTATION/CHIEF COMPLAINT: left hand cat bite Feb 26 with concern for spreading infection ?purulent tenosynovitis? HISTORY OF PRESENT ILLNESS: Patient had a cat bit from a newly acquired cat from [facility]. Patient was seen in ED Feb 26 and had tetanus, Abx as well as loose approximation of skin tear performed by ED physician. Worsening pain and redness spreading up the arm prompted return to ED. Called to assess for tenosynovitis, purulent in nature. ALLERGIES: Please see below. HOME MEDICATIONS: Please see below. PAST MEDICAL HISTORY: 1. . 2. . PAST SURGICAL HISTORY: 1. 2. FAMILY HISTORY: Father: Mother: Siblings: Children: Hereditary Diseases: Unexpected deaths due to medical reasons: SOCIAL HISTORY: Marital status and/or living arrangements: Children: Employment: Tobacco use: ETOH: Illicit drug use: IV drug use: Other relevant social factors: REVIEW OF SYSTEMS: CONSTITUTIONAL: . HEENT: . CARDIOVASCULAR: . RESPIRATORY: . GENITOURINARY: . MUSCULOSKELETAL: . GASTROINTESTINAL: . SKIN: . NEUROLOGICAL: . PSYCHIATRIC: . ENDOCRINE: . HEMATOLOGIC/LYMPHATIC: . ALLERGIC/IMMUNOLOGIC: . PHYSICAL EXAMINATION: VITAL SIGNS: Please see below. GENERAL APPEARANCE: A&O in NAD EXTREMITIES: Erythematous, edematous dorsum of hand with superficial lacerations to the 5th MCPJ and thenar eminence with no real signs of infection. Large curved laceration approx 3.5 cm and a smaller stellate puncture/laceration just radial with a 1 cm skin bridge. NEUROvascular: ltd exam, but grossly intact to sensation to med, uln and rad n dist. cap refill less than 3 sec Procedure: Consented for I&D w/o with all indicated procedures. Cleansed skin with chlorhexidine. Removal of sutures x4. Separation of laceration edges and removal of scabbed and fibrinous material. Expression of purulence from both curved and stellate lacerations. Tunneling noted distal to curved incision along majority of length approx 3 cm. Tunneling distal to stellate incision approx 2 cm. No foreign bodies or materials noted. Irrigated with NSS prepacked syringes x3 then a deep swab culture was taken from the curved laceration. Continued thorough irrigation of the tunneled wounds with . 10 NSS prepacked syringes. 8 ml of 1% lidocaine for local anesthetic was instilled around both of the lacerations. Probing of the wounds did not show any obvious disruption of the extensor tendon sheath for the 3rd digit, which was visible for about 1.5 cm of length. The 4th digit extensor tendon sheath was not as visible in the stellate laceration, but no obvious puncture or disruption of the sheath was noted. The purulence appeared to be subcutaneous without obvious fascial or tendon sheath involvement. Both of the lacerations were further irrigated with NSS and packed with betadine soaked IODOform ribbon guaze. 1 vertical and 1 horizontal mattress suture was placed to the large curved laceration to approximate the wound edges but still allow packing and drainage. The stellate laceration was left open. Mepilex border dressing was applied. LABORATORY DATA: Please see below. ASSESSMENT/PLAN: 1. Hospitalist service to admit for IV ABx 2. Have asked hospitalist service to consult wound care for packing and dressing change recommendations. 3. Will continue to review patient... if worsening symptoms, will likely have to contact Hand [facility] at [facility] for additional procedures. Vital Signs/I&O Vital Signs Date Time Temp Pulse Resp B/P (MAP) Pulse Ox O2 Delivery O2 Flow Rate FiO2 03/01/21 12:29 156/78 (104) 03/01/21 10:01 97.8 62 18 99 Room Air Laboratory Data Labs 24H Laboratory Tests 2 03/01/21 12:11: Immature Granulocyte % (Auto) 0.6, Neutrophils (%) (Auto) 75.4H, Lymphocytes (%) (Auto) 13.2L, Monocytes (%) (Auto) 9.6H, Eosinophils (%) (Auto) 1.0, Basophils (%) (Auto) 0.2, Neutrophils # (Auto) 9.2H, Lymphocytes # (Auto) 1.6, Monocytes # (Auto) 1.2H, Eosinophils # (Auto) 0.1, Basophils # (Auto) 0.0, Nucleated Red Bl ood Cells % (auto) 0.0, Erythrocyte Sedimentation Rate 35H, Lactic Acid Level 0.9, Total Bilirubin 1.1H, Direct Bilirubin 0.3H, Aspartate Amino Transf (AST/SGOT) 19, Alanine Aminotransferase (ALT/SGPT) 20, Alkaline Phosphatase 103, Total Creatine Kinase 170, Creatine Kinase MB 2.4, Creatine Kinase MB Relative Index 1.41, Troponin I < 0.02, C-Reactive Protein, Quantitative 8.73H, Total Protein 7.2, Albumin 3.3, Albumin/Globulin Ratio 0.8, Lipase 57L 03/01/21 12:17: POC Glucose (Misc Panel) 111H, POC Sodium (Misc Panel) 133L, POC Potassium (Misc Panel) 5.1, POC Chloride (Misc Panel) 97L, POC Total CO2 (Misc Panel) 27.0, POC Blood Urea Nitrogen (Misc Panel 29H, POC Ionized Calcium (Misc Panel) 4.8, POC Creatinine (Misc Panel) 1.6H, POC Hematocrit (Misc Panel) 43.0 03/01/21 12:22: Coronavirus (COVID-19)(PCR) NEGATIVE, Influenza Type A (RT-PCR) NEGATIVE, Influenza Type B (RT-PCR) NEGATIVE, Respiratory Syncytial Virus (PCR) NEGATIVE CBC/BMP Laboratory Tests 03/01/21 12:11 Microbiology Microbiology 03/01/21 Gram Stain, Received Pending 03/01/21 Wound Culture, Received Pending 03/01/21 Blood Culture, Received Pending 03/01/21 Blood Culture, Received Pending Allergies Coded Allergies: No Known Allergies (Unverified , 07/16/18) Home Medications Scheduled Aspirin (Aspirin EC) 81 Mg Tablet.dr, 162 MG PO DAILY, (Reported) Atenolol (Atenolol) 50 Mg Tab, 50 MG PO DAILY, (Reported) Atorvastatin Calcium (Atorvastatin Calcium) 80 Mg Tab, 80 MG PO DAILY, (Reported) Clopidogrel Bisulfate (Clopidogrel) 75 Mg Tab, 75 MG PO DAILY, (Reported) Lisinopril (Lisinopril) 10 Mg Tab, 10 MG PO DAILY, (Reported) JACKY HWANG MD Mar 01, 2021 15:19
[2021-03-01 16:00] VITALS: BP 102/75
[2021-03-01] MEDS: PIPERACILLIN/TAZOBACTAM SOD 3.375 GM in D5W MINI-BAG PLUS 50 ML IV SCH (18:21)
--- NOTE | 2021-03-01 18:34 | ECGEPIP ---
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
[2021-03-01 22:00] VITALS: BP 110/70
[2021-03-02] MEDS: PIPERACILLIN/TAZOBACTAM SOD 3.375 GM in D5W MINI-BAG PLUS 50 ML IV SCH ×5 (00:17→23:13)
[2021-03-02 06:00] VITALS: BP 162/57
[2021-03-02 06:48] LABS: HEMATOCRIT 34.7 % (42.0-52.0); MEAN CORPUSCULAR HEMOGLOBIN 31.1 pg (27.0-33.0); MEAN CORPUSCULAR HGB CONC 33.7 g/dl (32.0-36.5); MEAN CORPUSCULAR VOLUME 92.3 fl (80.0-96.0); PLATELET COUNT, AUTOMATED 144 10^3/uL (150-450); RED BLOOD COUNT 3.76 10^6/uL (4.30-6.10); WHITE BLOOD COUNT 9.3 10^3/uL (4.0-10.0)
[2021-03-02 06:56] LABS: HEMOGLOBIN 11.7 g/dl (13.5-17.5)
[2021-03-02 07:16] LABS: CALCIUM LEVEL 8.5 MG/DL (8.8-10.2); CREATININE FOR GFR 1.47 MG/DL (0.70-1.30); GLOMERULAR FILTRATION RATE 49.7 (>42); POTASSIUM SERUM 4.6 MEQ/L (3.5-5.1)
[2021-03-02] MEDS: ATORVASTATIN 20 MG TAB PO SCH (08:45)
[2021-03-02] MEDS: ASPIRIN 81MG ENTERIC TABLET PO SCH (08:45)
[2021-03-02] MEDS: CLOPIDOGREL 75 MG TAB PO SCH (08:45)
[2021-03-02] MEDS: atenoloL 50 MG TAB PO SCH (08:50)
--- NOTE | 2021-03-02 12:06 | IPNPDOC ---
Subjective Date Seen The patient was seen on 03/02/21. Subjective Chief Complaint/HPI Mr. Wasserman is a 75-year-old male with hypertension, hyperlipidemia, and current tobacco use who presents with left hand cat bite complicated by open wound and cellulitis. This morning, he denied any chest pain or dyspnea. He is anxious to go home. Otherwise, his hand is not as erythematous as yesterday. Still swollen. Objective Physical Examination General Exam: Positive: Alert, Cooperative Eye Exam: Positive: EOMI; Negative: Sclera icteric ENT Exam: Positive: Atraumatic Neck Exam: Positive: Supple Chest Exam: Positive: Clear to auscultation Heart Exam: Positive: Rate Normal, Regular Rhythm Abdomen Exam: Positive: Normal bowel sounds, Soft; Negative: Tenderness Extremity Exam: Negative: Edema Skin Exam: Positive: Other skin issue (Left hand wound has swelling and erythema. Not as erythematous as on admission) Neuro Exam: Positive: Cranial Nerves 3-12 NL Psych Exam: Positive: Mental status NL, Mood NL Assessment /Plan Assessment Mr. Wasserman is a 75-year-old male with hypertension, hyperlipidemia, and current tobacco use who presents with left hand cat bite complicated by open wound and cellulitis. Orthopedic surgery is following and recommendations are appreciated. Wound cultures have been obtained, pending results. Advance wound care has also been placed. Recommendations appreciated Plan/VTE VTE Prophylaxis Ordered?: Yes Plan 1. Cat bite wound with cellulitis Orthopedic surgery consulted, recommendations appreciated Debrided on 03/01/[address] Jung Advance wound care consulted, recommendations appreciated Zosyn day 2 2. Hypertension Continue atenolol and lisinopril 3. Atherosclerotic disease Patient has left carotid disease status post CEA Continue aspirin, Plavix, and atorvastatin 4. DVT prophylaxis SCDs and teds Disposition: Pending improvement in left hand cellulitis, wound culture results, and advanced wound care consult VS, I&O, 24H, Fishbone Vital Signs/I&O Vital Signs Date Time Temp Pulse Resp B/P (MAP) Pulse Ox O2 Delivery O2 Flow Rate FiO2 03/02/21 08:50 59 139/64 03/02/21 06:00 98.9 18 99 Room Air I&O- Last 24 Hours up to 6 AM 03/02/21 05:59 Intake Total 1270 ml Output Total 0 ml Balance 1270 ml Laboratory Data 24H LABS Laboratory Tests 2 03/01/21 12:11: Immature Granulocyte % (Auto) 0.6, Neutrophils (%) (Auto) 75.4H, Lymphocytes (%) (Auto) 13.2L, Monocytes (%) (Auto) 9.6H, Eosinophils (%) (Auto) 1.0, Basophils (%) (Auto) 0.2, Neutrophils # (Auto) 9.2H, Lymphocytes # (Auto) 1.6, Monocytes # (Auto) 1.2H, Eosinophils # (Auto) 0.1, Basophils # (Auto) 0.0, Nucleated Red Blood Cells % (auto) 0.0, Erythrocyte Sedimentation Rate 35H, Lactic Acid Level 0.9, Total Bilirubin 1.1H, Direct Bilirubin 0.3H, Aspartate Amino Transf (AST/SGOT) 19, Alanine Aminotransferase (ALT/SGPT) 20, Alkaline Phosphatase 103, Total Creatine Kinase 170, Creatine Kinase MB 2.4, Creatine Kinase MB Relative Index 1.41, Troponin I < 0.02, C-Reactive Protein, Quantitative 8.73H, Total Protein 7.2, Albumin 3.3, Albumin/Globulin Ratio 0.8, Lipase 57L 03/01/21 12:17: POC Glucose (Misc Panel) 111H, POC Sodium (Misc Panel) 133L, POC Potassium (Misc Panel) 5.1, POC Chloride (Misc Panel) 97L, POC Total CO2 (Misc Panel) 27.0, POC Blood Urea Nitrogen (Misc Panel 29H, POC Ionized Calcium (Misc Panel) 4.8, POC Creatinine (Misc Panel) 1.6H, POC Hematocrit (Misc Panel) 43.0 03/01/21 12:22: Coronavirus (COVID-19)(PCR) NEGATIVE, Influenza Type A (RT-PCR) NEGATIVE, Influenza Type B (RT-PCR) NEGATIVE, Respiratory Syncytial Virus (PCR) NEGATIVE 03/02/21 06:10: Nucleated Red Blood Cells % (auto) 0.0, Anion Gap 6L, Glomerular Filtration Rate 49.7, Calcium Level 8.5L CBC/BMP Laboratory Tests 03/01/21 12:11 03/02/21 06:10 Microbiology Microbiology 03/01/21 Gram Stain - Final, Resulted 03/01/21 Wound Culture, Resulted Pending 03/01/21 Blood Culture, Received Pending 03/01/21 Blood Culture, Received Pending SANDRA OSEGUERA DO Mar 02, 2021 12:06
--- NOTE | 2021-03-02 13:00 | IPNPDOC ---
Text Note Date of Service The patient was seen on 03/02/21. NOTE Post procedure day 1 Left hand dorsum irrigation and debridement of abscess without obvious involvement of tendon sheaths Patient currently has a packed dressing which is intact to the left dorsum of the hand. He does have a little bit of swelling that has persisted overnight. On questioning he states that he was not instructed to keep his hand elevated and this may be why he still has a little bit of swelling that has persisted. The erythema has significantly improved as has the swelling on the dorsal aspect of the hand. Reportedly the dressing was changed twice. Once last evening and once this morning. This appears to be due to staining from the Betadine packing that is in place. The patient does not report any significant difference. The Mepilex border dressing was taken down. The wound edges were cleansed with chlorhexidine. The packing was still in position. Again there was evidence of decreased swelling due to crenation around the skin. There is also significantly decreased erythema. He does have some swelling particularly at the bases of the digits which I think is related to his hand being in a dependent position. The majority of the swelling appears to be on the palmar aspect, not related to the dorsal aspect lacerations. I have provided instructions and orders for the patient to keep the hand elevated and for dressing changes. Culture results are still pending. The patient appears to be on IV antibiotics which have been ordered. Tailoring of the antibiotics is pending culture and sensitivity. There is a consult pending for wound care to evaluate for suggestions for packing and wound treatment. At this point there are no obvious specific orthopedic issues. The patient has had a superficial abscess as a result of a cat bite and some resulting cellulitis which at this point does not appear to involve purulent tenosy novitis. Anticipate improvement of cellulitis with antibiotic treatment. Addendum: Spoke with Dr. Ramírez regarding his videoconferencing wound care consult. He will make appropriate recommendations. He had recommended removing the packing and replacing it with a Hydrofera Blue product and then an Optifoam dressing. I contacted the keen about the patient's n.p.o. status. He had eaten lunch today, so I have spoken to nursing staff about performing a dressing change with irrigation at the bedside utilizing the recommendations from Dr. Ramírez. I will see the patient after the office today for this I&D and dressing change at the bedside. VS,Fishbone, I+O VS, Fishbone, I+O Laboratory Tests 03/02/21 06:10 Vital Signs Date Time Temp Pulse Resp B/P (MAP) Pulse Ox O2 Delivery O2 Flow Rate FiO2 03/02/21 08:50 59 139/64 03/02/21 06:00 98.9 18 99 Room Air I&O- Last 24 Hours up to 6 AM 03/02/21 06:00 Intake Total 1270 ml Output Total 0 ml Balance 1270 ml JACKY HWANG MD Mar 02, 2021 13:00
[2021-03-02 14:00] VITALS: BP 136/52
--- NOTE | 2021-03-02 15:20 | CR ---
WOUND CARE TELEMEDICINE CONSULTATION DATE: 03/02/2021 REQUESTING PHYSICIAN: SANDRA OSEGUERA DO REASON FOR CONSULTATION: Left hand wound with cellulitis. Wound care telemedicine provides a visual assessment of a wound without the benefit of physical examination. It can assist with establishing a diagnosis and etiology. This allows for an initial treatment plan. As wounds often change, it may be necessary to modify the original care. Our recommendation is periodic wound reassessment to monitor treatment. Failure to comply may result in nonhealing of the wound, possible complications and/or a poor outcome. The recommendations given will serve as treatment options. As I will not be following this patient, this care plan will require the attending physician to give and sign the orders. Upon discharge, outpatient follow-up can be scheduled at our [facility] if indicated. A 75-year-old non-diabetic man was bitten by his cat on February 26, 2021. The wound site shows two puncture wounds on the dorsal aspect of his left hand. He presented to the Emergency Room the same day where he was evaluated. The patient is unsure if he was given an antibiotic or not and does not recall. He was discharged from the ER the same day. As the wound did not improve, and actually worsened he was admitted on 03/01/2021. I have been asked to comment on treatment and give recommendations. On inspection, there is significant swelling, edema and widespread erythema involving the dorsal aspect of the left hand extending from the digit webspace to just above the wrist. There is no involvement of the fingers and no evidence of ascending lymphangitis. There are two open puncture wounds and a laceration all involving the mid central portion of the dorsal aspect of the hand.. There are two nylon sutures loosely approximating the central portion of the laceration which is packed with iodoform ribbon packing this appears dry without any obvious drainage. The patient cannot make a fist, cannot flex or extend his fingers and there is pain on active and passive range of motion The patient is afebrile with a white count of 9.3. PAST MEDICAL HISTORY: Smoker, negative for diabetes. The patient is right handed. This represents a significant wound with extensive cellulitis involving the entire dorsal aspect of the patient's left hand. He has decreased range of motion and there is pain on passive and active range of motion. TREATMENT RECOMMENDATIONS: Sutures and iodoform packing should be removed immediately to establish and promote wound drainage as the packing is dry and act to prevent this. Consideration for OR pulse lavage irrigation and debridement is strongly recommended. Post-debridement wound recommendations: Clean the wound with Vashe, wound cleanser for 10 minutes the wound should then be dressed with Hydrofera Blue rope inserted into the wound and then coverage with an Optifoam dressing. This is to be changed on a daily basis. Elevation of the left hand from the elbow to the wrist on several pillows is recommended. The majority of cat bite wounds culture out Pasteurella or Bartonella and the drug of choice is Zithromax. The patient is on Zyvox and consideration for change of antibiotics per culture results should be considered. If the patient does not show improvement within 2 to 3 days transfer to [facility] for a [facility] specialist to evaluate. This case was discussed in detail with Dr. Jung, the orthopedic surgeon, who is involved in the patient's care. This treatment was discussed in detail with him and he concurs with our treatment recommendations. LLOYD
[2021-03-02] MEDS ORDERED: LIDOCAINE W/EPINEPHRINE 1% 20ML VIAL SC ONE (16:00)
[2021-03-02] MEDS: AZITHROMYCIN INJ 500 MG, VIAL MATE ADAPTER 1 EACH in NS 250 ML IV SCH (20:00)
[2021-03-02 22:00] VITALS: BP 130/55
--- NOTE | 2021-03-02 22:08 | IPNPDOC ---
Text Note Date of Service The patient was seen on 03/02/21. NOTE Procedure Note: Spoke with Dr. Ramírez of wound care re: consult and recommendations for dressing changes. Please refer to his consult note for these. The hospitalist service adjusted the patient's antibiotics based on the empiric treatment recommendations from Dr. Ramírez. The patient had not been NPO for a formal OR irrigation and debridement, so he was consented for I&D w/o of the left hand lacerations under local anesthetic with wound dressing change and removal of sutures, at the bedside. Pulse lavage was not utilized due the size of the lacerations and concern that pressurized wash fluid could potentially force bacteria and fluid into the soft tissues. The dorsum of the patient's hand was cleansed with chlorhexidine. 10 ml of 1% lidocaine with epi was instilled into the surrounding soft tissues. The 2 nylon approximation sutures were removed and the ribbon gauze was removed from each of the 2 laceration sites. These laceration sites were irrigated with several NSS syringes. Vashe irrigation fluid was soaked into 2 separate 4x4 gauze pieces and packed into the 2 tunnelled lacerations. This was allowed to sit for approx 10 minutes. The 2 gauze pieces were removed thereafter. A mechanical debridement was then carried out. I did not appreciated any devitalized tissues within the wound beds. Scissors were used to remove some of the macerated skin tissue at the edges of the lacerations. Copious NSS was then irrigated through both of the tunnelled lacerations using a 10 ml syringe with an 18 gauge catheter tip. Approx 250 to 300 ml of fluid was irrigated through both lacerations. At Dr. Ramírez's recommendation, the hydrofera blue rope was used to pack the 2 tunnelled wounds. This was first soaked in NSS until activated. An approx 3 cm section was packed into the tunnel of the smaller radial laceration. Another 3 cm section of the hydrofera blue was packed into the ulnar aspect of the curvilnear laceration. The remainder of the hydrofera blue was packed into the radial aspect of the curvilinear laceration. The wounds were then covered with optifoam absorbent dressing. Overall, the patient tolerated the procedure well with no known complications. At Dr. Ramírez's recommendations, daily dressing changes will be done as above, using the Vashe wash followed by the Hydrofera blue packing and the optifoam. Evaluation overall from this morning demonstrated improvement in the erythema and swelling to the left hand. Will continue to monitor. Patient advised that additional procedures including transfer to a hand specialist for evaluation are still potential outcomes. VS,Fishbone, I+O VS, Fishbone, I+O Laboratory Tests 03/02/21 06:10 Vital Signs Date Time Temp Pulse Resp B/P (MAP) Pulse Ox O2 Delivery O2 Flow Rate FiO2 03/02/21 15:35 17 03/02/21 14:00 99.0 65 136/52 (80) 98 Room Air I&O- Last 24 Hours up to 6 AM 03/02/21 06:00 Intake Total 1270 ml Output Total 0 ml Balance 1270 ml JACKY HWANG MD Mar 02, 2021 22:08
[2021-03-03] MEDS: PIPERACILLIN/TAZOBACTAM SOD 3.375 GM in D5W MINI-BAG PLUS 50 ML IV SCH ×3 (05:01→17:40)
[2021-03-03 06:00] VITALS: BP 107/54
[2021-03-03 08:00] VITALS: BP 140/82
[2021-03-03 08:07] LABS: HEMATOCRIT 35.4 % (42.0-52.0); HEMOGLOBIN 11.8 g/dl (13.5-17.5); MEAN CORPUSCULAR HEMOGLOBIN 31.5 pg (27.0-33.0); MEAN CORPUSCULAR HGB CONC 33.3 g/dl (32.0-36.5); MEAN CORPUSCULAR VOLUME 94.4 fl (80.0-96.0); PLATELET COUNT, AUTOMATED 155 10^3/uL (150-450); RED BLOOD COUNT 3.75 10^6/uL (4.30-6.10); WHITE BLOOD COUNT 8.8 10^3/uL (4.0-10.0)
[2021-03-03 08:30] LABS: CALCIUM LEVEL 8.4 MG/DL (8.8-10.2); CREATININE FOR GFR 1.64 MG/DL (0.70-1.30); GLOMERULAR FILTRATION RATE 43.8 (>42)
[2021-03-03] MEDS: ATORVASTATIN 20 MG TAB PO SCH (08:44)
[2021-03-03] MEDS: ASPIRIN 81MG ENTERIC TABLET PO SCH (08:44)
[2021-03-03] MEDS: atenoloL 50 MG TAB PO SCH (09:45)
[2021-03-03] MEDS: CLOPIDOGREL 75 MG TAB PO SCH (09:45)
--- NOTE | 2021-03-03 13:27 | IPNPDOC ---
Subjective Date Seen The patient was seen on 03/03/21. Subjective Chief Complaint/HPI Mr. Wasserman is a 75-year-old male with hypertension, hyperlipidemia, and current tobacco use who presents with left hand cat bite complicated by open wound and cellulitis. This morning, he denied any chest pain or dyspnea. Erythema and swelling continues to improve. Patient is anxious to go home. Otherwise, will continue with Zosyn and Azithromycin. Objective Physical Examination General Exam: Positive: Alert, Cooperative Eye Exam: Positive: EOMI; Negative: Sclera icteric ENT Exam: Positive: Atraumatic Neck Exam: Positive: Supple Chest Exam: Positive: Clear to auscultation Heart Exam: Positive: Rate Normal, Regular Rhythm Abdomen Exam: Positive: Normal bowel sounds, Soft; Negative: Tenderness Extremity Exam: Negative: Edema Skin Exam: Positive: Other skin issue (Left hand wound has swelling and erythema. Both of which have improved) Neuro Exam: Positive: Cranial Nerves 3-12 NL Psych Exam: Positive: Mental status NL, Mood NL Assessment /Plan Assessment Mr. Wasserman is a 75-year-old male with hypertension, hyperlipidemia, and current tobacco use who presents with left hand cat bite complicated by open wound and cellulitis. Orthopedic surgery is following and recommendations are appreciated. Wound culture has no growth aerobically. Advanced wound care has been consulted. Recommendations appreciated. Plan/VTE VTE Prophylaxis Ordered?: Yes Plan 1. Cat bite wound with cellulitis Orthopedic surgery consulted, recommendations appreciated Debrided on 03/01/2021 and 03/02/[address] Jung Advance wound care consulted, recommendations appreciated -Wound culture demonstrates no growth aerobically. Will continue Zosyn for anaerobic organisms. Azithromycin for Pasteurella and Bartonella coverage Zosyn and azithromycin day 2 2. Hypertension Continue atenolol and lisinopril 3. Atherosclerotic disease Patient has left carotid disease status post CEA Continue aspirin, Plavix, and atorvastatin 4. DVT prophylaxis SCDs and teds Disposition: Pending improvement in left hand cellulitis VS, I&O, 24H, Fishbone Vital Signs/I&O Vital Signs Date Time Temp Pulse Resp B/P (MAP) Pulse Ox O2 Delivery O2 Flow Rate FiO2 03/03/21 09:45 62 140/82 03/03/21 08:00 98.4 16 97 Room Air I&O- Last 24 Hours up to 6 AM 03/03/21 06:00 Intake Total 1575 ml Output Total 0 ml Balance 1575 ml Laboratory Data 24H LABS Laboratory Tests 2 03/03/21 07:40: Nucleated Red Blood Cells % (auto) 0.0, Anion Gap 5L, Glomerular Filtration Rate 43.8, Calcium Level 8.4L CBC/BMP Laboratory Tests 03/03/21 07:40 Microbiology Microbiology 03/01/21 Gram Stain - Final, Complete 03/01/21 Wound Culture - Final, Complete 03/01/21 Blood Culture - Preliminary, Resulted No Growth after 48 hours. All Specime... 03/01/21 Blood Culture - Preliminary, Resulted No Growth after 48 hours. All Specime... SANDRA OSEGUERA DO Mar 03, 2021 13:27
[2021-03-03 14:00] VITALS: BP 118/68
--- NOTE | 2021-03-03 18:24 | IPNPDOC ---
Text Note Date of Service The patient was seen on 03/03/21. NOTE Post admission day 3. Patient is anxious to go home. Continues with IV antibiotic treatment. Does not report any fever or chills. Does not report any significant pain, but unable to actively flex digits beyond a few degrees. Dressing change done earlier by nursing staff. Wound dressing removed. Dressing blue ribbon intact, but overlapping the skin. This overlapping area was cut short so that the blue ribbon was not in contact with the vitalized tissue. There was minimal drainage on the dressing. No active bleeding to the wound. The patient had limited ROM to the digits with only a few degrees of flexion. Passive flexion and extension was only painful with flexion beyond 25 degrees or so. The erythema from the date of admission and the swelling has definitely improved. I was unable to touch base with Dr. Cole today, I will speak with him tomorrow am about the patient's status. If there is worsening of symptoms, plan to transfer patient to Hand specialist. If continued improvement, discuss plan for antibiotic treatment, dressing changes and follow up with wound care. Aerobic cx were negative, blood cx were negative. WBC count has improved. ESR and CRP repeat, pending. VS,Fishbone, I+O VS, Fishbone, I+O Laboratory Tests 03/03/21 07:40 Vital Signs Date Time Temp Pulse Resp B/P (MAP) Pulse Ox O2 Delivery O2 Flow Rate FiO2 03/03/21 14:00 98.1 58 14 118/68 (85) 95 Room Air I&O- Last 24 Hours up to 6 AM 03/03/21 06:00 Intake Total 1575 ml Output Total 0 ml Balance 1575 ml JACKY HWANG MD Mar 03, 2021 18:24
[2021-03-03] MEDS: AZITHROMYCIN INJ 500 MG, VIAL MATE ADAPTER 1 EACH in NS 250 ML IV SCH (20:00)
[2021-03-03 22:00] VITALS: BP 152/47
[2021-03-04] MEDS: PIPERACILLIN/TAZOBACTAM SOD 3.375 GM in D5W MINI-BAG PLUS 50 ML IV SCH ×3 (01:16→12:00)
[2021-03-04 06:00] VITALS: BP 152/53
[2021-03-04 06:14] LABS: HEMOGLOBIN 10.7 g/dl (13.5-17.5); MEAN CORPUSCULAR HEMOGLOBIN 30.7 pg (27.0-33.0); MEAN CORPUSCULAR HGB CONC 33.4 g/dl (32.0-36.5); MEAN CORPUSCULAR VOLUME 91.7 fl (80.0-96.0); PLATELET COUNT, AUTOMATED 149 10^3/uL (150-450); RED BLOOD COUNT 3.49 10^6/uL (4.30-6.10); WHITE BLOOD COUNT 8.5 10^3/uL (4.0-10.0)
[2021-03-04 06:31] LABS: CALCIUM LEVEL 8.4 MG/DL (8.8-10.2); CREATININE FOR GFR 1.45 MG/DL (0.70-1.30); GLOMERULAR FILTRATION RATE 50.5 (>42); POTASSIUM SERUM 4.3 MEQ/L (3.5-5.1)
--- NOTE | 2021-03-04 07:57 | IPNPDOC ---
Text Note Date of Service The patient was seen on 03/04/21. NOTE Post admission day 4 Patient sleeping comfortably. Insists that he is going home today. Denies any new complaints or concerns. Of note, nursing staff stated that he threatened to leave AMA last night. There are concerns about his abilities to be compliant. Dressing was removed and this demonstrated the packing in position with no significant evidence of staining aside from that of the sponge. No evidence of additional necrotic tissues at wound edges apparent. Erythema and edema seemed to improve significantly overnight. CRP and WBC improving. Pt has been afebrile. Overall the patient appears to be improving from the cellulitis to his left hand, with associated drained abcesses and no evidence of purulent tenosynovitis. Spoke with Dr. Ashton about evaluation for home antibiotic therapy continuation and daily wound care dressing changes as recommended by Dr. Ramírez. Dr. Ramírez should be consulted for outpatient follow up in wound care clinic. Recommend follow up with Dr. Ramírez next week at the earliest appointment for continued wound care. Nursing staff has recommended a social/home evaluation, which I have passed on to Dr. Ashton. At this point, the cellulitis appears to be improving. There are no obvious orthopedic issues. Orthopedic surgery signing off. I have advised the patient that he must comply with antibiotic and dressing change and all other recommendations as there is still a resolving infection with open healing wound s. There is still a risk of infection progression and worsening, which would require urgent referral to a hand specialist in [place]. It is important to follow up with wound care for continued evaluation and dressing change recommendations. VS,Fishbone, I+O VS, Fishbone, I+O Laboratory Tests 03/03/21 07:40 03/04/21 05:55 Vital Signs Date Time Temp Pulse Resp B/P (MAP) Pulse Ox O2 Delivery O2 Flow Rate FiO2 03/04/21 06:00 98.5 58 20 152/53 (86) 95 Room Air I&O- Last 24 Hours up to 6 AM 03/04/21 06:00 Intake Total 3050 ml Output Total 0 ml Balance 3050 ml JACKY HWANG MD Mar 04, 2021 07:57
[2021-03-04] MEDS: atenoloL 50 MG TAB PO SCH (08:35)
[2021-03-04] MEDS: ASPIRIN 81MG ENTERIC TABLET PO SCH (08:35)
[2021-03-04 08:36] VITALS: BP 152/53
[2021-03-04] MEDS: CLOPIDOGREL 75 MG TAB PO SCH (08:36)
[2021-03-04] MEDS: ATORVASTATIN 20 MG TAB PO SCH (08:36)
[2021-03-04] MEDS ORDERED: DOXYCYCLINE HYCLATE 100MG TABLET PO SCH (09:00)
[2021-03-04] MEDS ORDERED: AUGMENTIN 875 MG TAB PO SCH (09:00)
[2021-03-04] MEDS ORDERED: DOXY100T PO (12:20)
[2021-03-04] MEDS ORDERED: AMOX875T2 PO (12:20)
--- NOTE | 2021-03-04 19:16 | DS.PDOC ---
Discharge Summary General Date of Admission Mar 01, 2021 at 14:52 Date of Discharge Mar 04, 2021 Specialist/Consultants Involve Orthopedic surgery, Dr. Jung Discharge Summary PROCEDURES PERFORMED DURING STAY: Debridement of left hand x2 by Dr. Jung ADMITTING DIAGNOSES: 1. Cat bite wound with cellulitis 2. Hypertension 3. Atherosclerotic disease DISCHARGE DIAGNOSES: 1. Cat bite wound with cellulitis 2. Hypertension 3. Atherosclerotic disease COMPLICATIONS/CHIEF COMPLAINT: Cat Bite, Cellulitis Of Hand. HISTORY OF PRESENT ILLNESS: Mr. Wasserman is a 75-year-old male with hypertension, hyperlipidemia, and current tobacco use who presents with left hand cat bite complicated by open wound and cellulitis. Patient recently obtained a rescue cat recently. On February 26, he found his cat outside. As his bring the cat inside, the cat bit his left hand and left a large wound. He came into the ED and the ED provider placed 3 stitches. Patient was discharged home with Augme mahoganyin. Over the next few days, the wound became infected. His left hand became red, swollen, and painful. He returned to the ED for evaluation. X-ray of the hand did not demonstrate any fracture or osteomyelitis. Orthopedic surgery, Dr. Jung, evaluated the patient. He remove the stitches, debrided the wound, and placed new stitches. He recommended IV antibiotics and advanced wound care con sult. Dr. Jung will continue following the patient. When I saw patient in the ED, he was feeling better. He denied any fever or chills, chest pain, dyspnea, abdominal pain, or dysuria. He has a chronic cough secondary to smoking. Denies any other rashes or bruises other than his left hand. Denies any anxiety or depression. His vital signs have been stable. He is afebrile. His left hand was hot, swollen, and erythematous. He does have mild leukocytosis of 12.2. CRP is elevated at 8.73. Patient was given Zosyn and a liter of fluids in the ED. Patient be admitted for left hand cellulitis secondary to cat bite wound HOSPITAL COURSE: Orthopedic surgery recommended advance wound care consult. Dr. Ramírez evaluated patient and recommended another debridement and azithromycin. Wound care orders were placed. Patient's wound improved and patient would not need to be transferred. He is anxious to go home. I touch base with ID, recommended Augmentin and doxycycline. Patient will be discharged home today and we stressed the importance of medication compliance and wound care DISCHARGE MEDICATIONS: Please see below. ALLERGIES: Please see below. PHYSICAL EXAMINATION ON DISCHARGE: VITAL SIGNS: Please see below. GENERAL: Comfortable, in no apparent distress. HEENT: EOMI, sclera clear. NECK: Supple. RESPIRATORY: Lungs clear to auscultation bilaterally, no rales, wheeze or rhonchi. CARDIOVASCULAR: Regular rate and rhythm. ABDOMEN: Soft, nontender, no guarding or rebound tenderness. Normal bowel sounds. MUSCLE SKELETAL: Left hand wound with swelling and erythema much improved NEUROLOGICAL: CN 312 grossly intact. PSYCHOLOGICAL: Normal mood and affect. LABORATORY DATA: Please see below. IMAGING: Radiologist interpretation X-ray hand, left No fracture or dislocation. No radiographic signs of osteomyelitis. Degenerative changes. PROGNOSIS: Good ACTIVITY: As tolerated. DIET: As tolerated DISCHARGE PLAN: Home with home health services DISPOSITION: Home Health Service. DISCHARGE INSTRUCTIONS: 1. Follow-up with PCP within a week. 2. Follow-up with advanced wound care, Dr. Ramírez within a week. ITEMS TO FOLLOWUP ON ON OUTPATIENT: 1. Left hand wound DISCHARGE CONDITION: Stable. Total time spent on discharge planning, discharge summary, and medication reconciliation: 40 minutes Vital Signs/I&Os Vital Signs Date Time Temp Pulse Resp B/P (MAP) Pulse Ox O2 Delivery O2 Flow Rate FiO2 03/04/21 08:36 152/53 03/04/21 08:35 58 03/04/21 06:00 98.5 20 95 Room Air I&O- Last 24 Hours up to 6 AM 03/04/21 06:00 Intake Total 3050 ml Output Total 0 ml Balance 3050 ml Laboratory Data Labs 24H Laboratory Tests 2 03/04/21 05:55: Nucleated Red Blood Cells % (auto) 0.0, Anion Gap 8, Glomerular Filtration Rate 50.5, Calcium Level 8.4L CBC/BMP Laboratory Tests 03/04/21 05:55 Microbiology Microbiology 03/01/21 Gram Stain - Final, Complete 03/01/21 Wound Culture - Final, Complete 03/01/21 Blood Culture - Preliminary, Resulted No Growth after 72 hours. All specime... 03/01/21 Blood Culture - Preliminary, Resulted No Growth after 72 hours. All specime... Discharge Medications Scheduled Amoxicillin/Potassium Clav (Amox-Clav 875-125 mg Tablet) 1 Each Tablet, 875 MG PO BID Aspirin (Aspirin EC) 81 Mg Tablet.dr, 162 MG PO DAILY, (Reported) Atenolol (Atenolol) 50 Mg Tab, 50 MG PO DAILY, (Reported) Atorvastatin Calcium (Atorvastatin Calcium) 80 Mg Tab, 80 MG PO DAILY, (Reported) Clopidogrel Bisulfate (Clopidogrel) 75 Mg Tab, 75 MG PO DAILY, (Reported) Doxycycline Hyclate (Doxycycline Hyclate) 100 Mg Tablet, 100 MG PO BID Lisinopril (Lisinopril) 10 Mg Tab, 10 MG PO DAILY, (Reported) Allergies Coded Allergies: No Known Allergies (Unverified , 07/16/18) SANDRA OSEGUERA DO Mar 04, 2021 19:16
== END 2021-03-04 13:45 | disposition home health service (06) | DRG 605 ==
LOC: M ED 10:00 → M ED INP 14:52 → ENRESERV 15:35 → M MS5PR 16:00
PROVIDERS: ADMIT Internal Medicine; ATTEND Internal Medicine
PROC: 0X9K3ZZ Drainage of Left Hand, Percutaneous Approach (ICD-10-PCS; principal; 2021-03-02)
PROC: 0HBGXZZ Excision of Left Hand Skin, External Approach (ICD-10-PCS; 2021-03-02)
DX: S61.452A Open bite of left hand, initial encounter (principal); L03.114 Cellulitis of left upper limb; I10 Essential (primary) hypertension; E78.5 Hyperlipidemia, unspecified; F17.200 Nicotine dependence, unspecified, uncomplicated; Z79.82 Long term (current) use of aspirin; Z79.899 Other long term (current) drug therapy; K57.30 Diverticulosis of large intestine without perforation or abscess without bleeding; W55.01XA Bitten by cat, initial encounter; Y92.009 Unspecified place in unspecified non-institutional (private) residence as the place of occurrence of the external cause

== ENCOUNTER → 2021-06-23 | Outpatient (REF) | payer MEDICARE ==
[~2021-06-23] MED LIST changes: +AMOX875T2 PO; +ASPI81TA26 PO; +DOXY100T PO
== END ==
LOC: M LAB REF 16:23
PROVIDERS: ATTEND Surgery
DX: L72.0 Epidermal cyst (principal)

== ENCOUNTER → 2021-10-26 | Outpatient (CLI) | payer MEDICARE | LOC: M RAD 09:16 | PROVIDERS: ATTEND Physician Assistant | DX: Z12.2 Encounter for screening for malignant neoplasm of respiratory organs (principal); F17.210 Nicotine dependence, cigarettes, uncomplicated ==

== ENCOUNTER 2024-01-04 08:03 | Emergency (ER) | payer MEDICARE, OTHER ==
[~2024-01-04] VITALS: Ht 175.3 cm; Wt 77.8 kg
[2024-01-04 08:04] VITALS: BP 146/66; TEMP 98.7; O2SAT 100
[2024-01-04] MEDS ORDERED: ATEN25TA (08:16)
== END 2024-01-04 09:15 | disposition home or self-care (01) ==
LOC: M ED 08:03
DX: B07.0 Plantar wart (principal); I10 Essential (primary) hypertension; F17.200 Nicotine dependence, unspecified, uncomplicated; Z86.79 Personal history of other diseases of the circulatory system; Z79.02 Long term (current) use of antithrombotics/antiplatelets; Z79.811 Long term (current) use of aromatase inhibitors; Z79.899 Other long term (current) drug therapy

== ENCOUNTER 2024-11-11 07:58 | Emergency (ER) | payer MEDICARE, OTHER ==
[~2024-11-11] VITALS: Ht 175.3 cm; Wt 76.3 kg
[~2024-11-11 07:58] MED LIST changes: +ATEN25TA
[2024-11-11 10:25] VITALS: BP 149/67; TEMP 98.3; O2SAT 99
== END 2024-11-11 10:23 | disposition home or self-care (01) ==
LOC: M ED 07:58
DX: L85.8 Other specified epidermal thickening (principal); I10 Essential (primary) hypertension; F17.200 Nicotine dependence, unspecified, uncomplicated; Z79.02 Long term (current) use of antithrombotics/antiplatelets; Z79.899 Other long term (current) drug therapy